=== PATIENT | male | born 1955 | race Caucasian/White ===

== ENCOUNTER 2020-01-02 13:48 | Emergency (ER) | payer MEDICARE ==
[2020-01-02 13:56] VITALS: RESP 18
--- NOTE | 2020-01-02 14:52 | XR ---
EXAMINATION TYPE: XR chest 2V DATE OF EXAM: 01/02/2020 COMPARISON: NONE HISTORY: Shortness of breath TECHNIQUE: Frontal and lateral views of the chest are obtained. FINDINGS: There is no focal air space opacity, pleural effusion, or pneumothorax seen. The cardiac silhouette size is within normal limits. The osseous structures are intact. Postop changes are note d to the left shoulder. Patient is rotated. Thoracic spondylosis is present. IMPRESSION: No acute cardiopulmonary process.
[2020-01-02 15:18] LABS: Albumin 3.8 g/dL (3.5-5.0); Calcium 8.9 mg/dL (8.4-10.2); INR 1.1 (<1.2); Partial Thromboplastin Time 23.7 sec (22.0-30.0); Potassium 4.3 mmol/L (3.5-5.1); Prothrombin Time 10.9 sec (9.0-12.0); Total Bilirubin 1.1 mg/dL (0.2-1.3); Total Protein 6.6 g/dL (6.3-8.2)
[2020-01-02 15:23] LABS: HCT 40.6 % (39.0-53.0); HGB 13.4 gm/dL (13.0-17.5); MCH 29.4 pg (25.0-35.0); MCHC 33.1 g/dL (31.0-37.0); MCV 88.8 fL (80.0-100.0); Mean Platelet Volume 7.4; Platelet Count 176 k/uL (150-450); RBC 4.57 m/uL (4.30-5.90); RDW 13.7 % (11.5-15.5); WBC 8.4 k/uL (3.8-10.6)
[2020-01-02 15:50] LABS: Eosinophils # (M) 0.25 k/uL (0-0.7); Lymphocytes # (M) 3.11 k/uL (1.0-4.8); Monocytes # (M) 0.25 k/uL (0-1.0); Neutrophils # (M) 4.79 k/uL (1.3-7.7); Neutrophils % (M) 57 %; Nucleated Red Blood Cells 0 /100 WBC (0-0); Poikilocytosis (M) Present; Total Cells Counted 100
[2020-01-02] MEDS ORDERED: DEXAMETHASONE 4 MG TAB PO STA (17:22)
--- NOTE | 2020-01-02 17:23 | ED ---
URI HPI - General Chief Complaint: Upper Respiratory Infection Stated Complaint: Sore throat headache, SOB Time Seen by Provider: 01/02/20 14:04 Source: patient Mode of arrival: ambulatory Limitations: no limitations - History of Present Illness Initial Comments: 64-year-old male presenting for sore throat and slight headache. Patient states he has had a sore throat for the past 2-3 days as well as a slight headache denies any neck stiffness or fevers. Patient states he had very slight SOB but mentioned that he was not really worried about that. Denies leg swelling, chest pain, hemoptysis, hx DVT/PE or cancer. Denies pain with deep inspiration. Wally hanson denies drooling trismus difficulty swallowing. Patient states she still been eating. Patient denies any abdominal pain nausea vomiting jaw pain or arm pain. Patient has no additional complaints denies any current headache. Upon arrival patient appears well no signs acute distress. Patient did mention that he noted that his throat was red. - Related Data Allergies Allergy/AdvReac Type Severity Reaction Status Date / Time No Known Allergies Allergy Verified 01/02/20 13:56 Review of Systems ROS Statement: Those systems with pertinent positive or pertinent negative responses have been documented in the HPI. ROS Other: All systems not noted in ROS Statement are negative. Past Medical History Past Medical History: Hyperlipidemia, Hypertension History of Any Multi-Drug Resistant Organisms: None Reported Additional Past Surgical History / Comment(s): hip replacements Past Psychological History: No Psychological Hx Reported Smoking Status: Never smoker Past Alcohol Use History: None Reported Past Drug Use History: None Reported General Exam - General Exam Comments Initial Comments: General: The patient is awake and alert, in no distress, and does not appear acutely ill. Eye: +3 mm pupils are equal, round and reactive to light, extra-ocular movements are intact. No nystagmus. There is normal conjunctiva bilaterally. No signs of icterus. No photophobia Ears, nose, mouth and throat: There are moist mucous membranes and no oral lesions. Oropharynx was erythematous there is no tonsillar enlargement exudates or lesions. Some palatal petechiae noted. Uvula midline. No anterior cervical lymphadenopathy. Rhinorrhea, clear and bilateral nares. No tripoding, no drooling. Neck: The neck is supple, there is no tenderness or JVD. No nuchal rigidity Cardiovascular: There is a regular rate and rhythm. No murmur, rub or gallop is appreciated. Respiratory: Lungs are clear to auscultation, respirations are non-labored, breath sounds are equal. No wheezes, stridor, rales, or rhonchi. No retractions or abdominal breathing. Gastrointestinal: Soft, non-distended, non-tender abdomen without masses or organomegaly noted. There is no rebound or guarding present. Bowel sounds are unremarkable. Musculoskeletal: Normal ROM, no tenderness. Strength 5/5. Sensation intact. Radial pulses equal bilaterally 2+. Neurological: A&O x 3. CN II-XII intact grossly, There are no obvious motor or sensory deficits. Coordination appears grossly intact. Speech appears normal, no muffling. Skin: Skin is warm and dry and no rashes or lesions are noted. No extremity edema Psychiatric: Cooperative Limitations: no limitations Course Vital Signs 01/02/20 01/02/20 13:52 17:35 Temperature 98.5 F 98.0 F Pulse Rate 64 74 Respiratory 18 18 Rate Blood Pressure 144/82 145/95 O2 Sat by Pulse 97 98 Oximetry Medical Decision Making - Medical Decision Making 64-year-old male presenting today for sore throat and slight headache and slight shortness of breath. He states he was not concerned with a headache or slight shortness of breath was more concerned for possible Coumadin. Coumadin testing negative. Patient has no trismus or difficulty swallowing tolerating oral secretions uvula midline. Patient does have signs of pharyngitis on physical examination. Patient's chest x-ray clear to sensitivity stable EKG no acute findings aside from noted bradycardia which resolved, no noted heart block-den ied symptoms with lower heart rate (no current SOB in ER). patient appears well, no distress requesting discharge. Dr Banks reviewed EKG and is agreeable to care plan and discharge. - Lab Data Result diagrams: 01/02/20 14:18 01/02/20 14:18 Lab Results 01/02/20 01/02/20 01/02/20 Range/Units 14:18 14:18 14:18 WBC 8.4 (3.8-10.6) k/uL RBC 4.57 (4.30-5.90) m/uL Hgb 13.4 (13.0-17.5) gm/dL Hct 40.6 (39.0-53.0) % MCV 88.8 (80.0-100.0) fL MCH 29.4 (25.0-35.0) pg MCHC 33.1 (31.0-37.0) g/dL RDW 13.7 (11.5-15.5) % Plt Count 176 (150-450) k/uL Neutrophils % (Manual) 57 % Lymphocytes % (Manual) 37 % Monocytes % (Manual) 3 % Eosinophils % (Manual) 3 % Neutrophils # (Manual) 4.79 (1.3-7.7) k/uL Lymphocytes # (Manual) 3.11 (1.0-4.8) k/uL Monocytes # (Manual) 0.25 (0-1.0) k/uL Eosinophils # (Manual) 0.25 (0-0.7) k/uL Nucleated RBCs 0 (0-0) /100 WBC Manual Slide Review Performed Poikilocytosis (manual Present PT 10.9 (9.0-12.0) sec INR 1.1 (<1.2) APTT 23.7 (22.0-30.0) sec Sodium 139 (137-145) mmol/L Potassium 4.3 (3.5-5.1) mmol/L Chloride 106 (98-107) mmol/L Carbon Dioxide 27 (22-30) mmol/L Anion Gap 6 mmol/L BUN 32 H (9-20) mg/dL Creatinine 1.18 (0.66-1.25) mg/dL Est GFR (CKD-EPI)AfAm 75 (>60 ml/min/1.73 sqM) Est GFR (CKD-EPI)NonAf 65 (>60 ml/min/1.73 sqM) Glucose 98 (74-99) mg/dL Plasma Lactic Acid Amish (0.7-2.0) mmol/L Calcium 8.9 (8.4-10.2) mg/dL Total Bilirubin 1.1 (0.2-1.3) mg/dL AST 112 H (17-59) U/L ALT 128 H (4-49) U/L Alkaline Phosphatase 90 (38-126) U/L Troponin I (0.000-0.034) ng/mL NT-Pro-B Natriuret Pep pg/mL Total Protein 6.6 (6.3-8.2) g/dL Albumin 3.8 (3.5-5.0) g/dL Coronavirus (PCR) (Not Detectd) Heterophile Antibody (Negative) Group A Strep Rapid (Negative) 01/02/20 01/02/20 01/02/20 Range/Units 14:18 14:18 14:18 WBC (3.8-10.6) k/uL RBC (4.30-5.90) m/uL Hgb (13.0-17.5) gm/dL Hct (39.0-53.0) % MCV (80.0-100.0) fL MCH (25.0-35.0) pg MCHC (31.0-37.0) g/dL RDW (11.5-15.5) % Plt Count (150-450) k/uL Neutrophils % (Manual) % Lymphocytes % (Manual) % Monocytes % (Manual) % Eosinophils % (Manual) % Neutrophils # (Manual) (1.3-7.7) k/uL Lymphocytes # (Manual) (1.0-4.8) k/uL Monocytes # (Manual) (0-1.0) k/uL Eosinophils # (Manual) (0-0.7) k/uL Nucleated RBCs (0-0) /100 WBC Manual Slide Review Poikilocytosis (manual PT (9.0-12.0) sec INR (<1.2) APTT (22.0-30.0) sec Sodium (137-145) mmol/L Potassium (3.5-5.1) mmol/L Chloride (98-107) mmol/L Carbon Dioxide (22-30) mmol/L Anion Gap mmol/L BUN (9-20) mg/dL Creatinine (0.66-1.25) mg/dL Est GFR (CKD-EPI)AfAm (>60 ml/min/1.73 sqM) Est GFR (CKD-EPI)NonAf (>60 ml/min/1.73 sqM) Glucose (74-99) mg/dL Plasma Lactic Acid Amish 0.9 (0.7-2.0) mmol/L Calcium (8.4-10.2) mg/dL Total Bilirubin (0.2-1.3) mg/dL AST (17-59) U/L ALT (4-49) U/L Alkaline Phosphatase (38-126) U/L Troponin I <0.012 (0.000-0.034) ng/mL NT-Pro-B Natriuret Pep 892 pg/mL Total Protein (6.3-8.2) g/dL Albumin (3.5-5.0) g/dL Coronavirus (PCR) (Not Detectd) Heterophile Antibody (Negative) Group A Strep Rapid (Negative) 01/02/20 01/02/20 01/02/20 Range/Units 15:11 15:11 15:50 WBC (3.8-10.6) k/uL RBC (4.30-5.90) m/uL Hgb (13.0-17.5) gm/dL Hct (39.0-53.0) % MCV (80.0-100.0) fL MCH (25.0-35.0) pg MCHC (31.0-37.0) g/dL RDW (11.5-15.5) % Plt Count (150-450) k/uL Neutrophils % (Manual) % Lymphocytes % (Manual) % Monocytes % (Manual) % Eosinophils % (Manual) % Neutrophils # (Manual) (1.3-7.7) k/uL Lymphocytes # (Manual) (1.0-4.8) k/uL Monocytes # (Manual) (0-1.0) k/uL Eosinophils # (Manual) (0-0.7) k/uL Nucleated RBCs (0-0) /100 WBC Manual Slide Review Poikilocytosis (manual PT (9.0-12.0) sec INR (<1.2) APTT (22.0-30.0) sec Sodium (137-145) mmol/L Potassium (3.5-5.1) mmol/L Chloride (98-107) mmol/L Carbon Dioxide (22-30) mmol/L Anion Gap mmol/L BUN (9-20) mg/dL Creatinine (0.66-1.25) mg/dL Est GFR (CKD-EPI)AfAm (>60 ml/min/1.73 sqM) Est GFR (CKD-EPI)NonAf (>60 ml/min/1.73 sqM) Glucose (74-99) mg/dL Plasma Lactic Acid Amish (0.7-2.0) mmol/L Calcium (8.4-10.2) mg/dL Total Bilirubin (0.2-1.3) mg/dL AST (17-59) U/L ALT (4-49) U/L Alkaline Phosphatase (38-126) U/L Troponin I (0.000-0.034) ng/mL NT-Pro-B Natriuret Pep pg/mL Total Protein (6.3-8.2) g/dL Albumin (3.5-5.0) g/dL Coronavirus (PCR) Not Detected (Not Detectd) Heterophile Antibody Negative (Negative) Group A Strep Rapid Negative (Negative) Disposition Clinical Impression: Pharyngitis Disposition: HOME SELF-CARE Condition: Good Instructions (If sedation given, give patient instructions): Pharyngitis (ED) Additional Instructions: Please use medication as discussed. Please follow-up with family doctor in the next 2 days, as well as ENT if symptoms are persistent but if worsening recommend immediate ER return. Please return to emergency room if the symptoms increase or worsen or for any other concerns. Is patient prescribed a controlled substance at d/c from ED?: No Referrals: Domingo Garcia DO [Primary Care Provider] - 1-2 days Easton Espinosa MD [STAFF PHYSICIAN] - 1-2 days Time of Disposition: 17:22
[2020-01-02 17:35] VITALS: BP 145/95; PULSE 74; TEMP 98
== END 2020-01-02 17:35 | disposition home or self-care (01) ==
LOC: EC 13:48
DX: J02.9 Acute pharyngitis, unspecified (principal); Z20.828 Contact with and (suspected) exposure to other viral communicable diseases; I10 Essential (primary) hypertension
CPT/HCPCS: 36415; 93005; 83880; 80053; 83605; 84484; 85025; 85610; 85730; 86308; 87081; 87430; 87635; 71046; 99285; J8540

== ENCOUNTER 2020-06-25 10:45 | Emergency (ER) | payer MEDICARE ==
[2020-06-25 10:53] VITALS: RESP 18; TEMP 97.6
[2020-06-25] MEDS ORDERED: DIPH,PERTUS(ACELL)TETVAC-LF 0.5 ML VIAL IM ONE (11:07)
--- NOTE | 2020-06-25 11:09 | ED ---
General Adult HPI - General Chief complaint: Extremity Injury, Upper Stated complaint: hand injury Time Seen by Provider: 06/25/20 11:03 Source: patient, RN notes reviewed Mode of arrival: ambulatory Limitations: no limitations - History of Present Illness Initial comments: Patient is a pleasant 65-year-old male presenting to the emergency Department wi th complaints of left index finger injury. Incident occurred prior to arrival. Patient was cutting a deer out of a tree when the rope wrapped around his left hand, most pressure in his left index finger. Patient did have some bleeding. Patient does have discomfort of the finger that does increase with movement. Patient feels his strength is good. No history of similar incident previously. Unclear last tetanus immunization. No other area of injury. No head injury or loss of consciousness. Patient did not fall off his ladder. - Related Data Previous Rx's Medication Instructions Recorded Cephalexin [Keflex] 500 mg PO TID #15 cap 06/25/20 Allergies Allergy/AdvReac Type Severity Reaction Status Date / Time No Known Allergies Allergy Verified 06/25/20 10:53 Review of Systems ROS Statement: Those systems with pertinent positive or pertinent negative responses have been documented in the HPI. ROS Other: All systems not noted in ROS Statement are negative. Constitutional: Denies: fever Eyes: Denies: eye pain ENT: Denies: ear pain Respiratory: Denies: cough Cardiovascular: Denies: chest pain Endocrine: Denies: fatigue Gastrointestinal: Denies: abdominal pain Genitourinary: Denies: dysuria Musculoskeletal: Reports: as per HPI. Denies: back pain Skin: Reports: as per HPI Past Medical History Past Medical History: Hyperlipidemia, Hypertension History of Any Multi-Drug Resistant Organisms: None Reported Additional Past Surgical History / Comment(s): hip replacements Past Psychological History: No Psychological Hx Reported Smoking Status: Never smoker Past Alcohol Use History: None Reported Past Drug Use History: None Reported General Exam Limitations: no limitations General appearance: alert, in no apparent distress Head exam: Present: normocephalic Eye exam: Present: normal appearance Neck exam: Present: normal inspection. Absent: tenderness Respiratory exam: Present: normal lung sounds bilaterally Cardiovascular Exam: Present: regular rate, normal rhythm GI/Abdominal exam: Present: soft. Absent: tenderness Extremities exam: Present: tenderness (Tenderness left index finger, mostly at the PIP), other (Good strength against resistance flexion and extension of left index finger. Cap refill less than 2 seconds. Sensation intact.) Neurological exam: Present: alert Psychiatric exam: Present: normal affect, normal mood Skin exam: Present: other (Flap laceration palmar side of the left index finger PIP) Course Vital Signs 06/25/20 10:51 Temperature 97.6 F Pulse Rate 55 L Respiratory 18 Rate Blood Pressure 129/81 O2 Sat by Pulse 98 Oximetry Procedures - Procedures Initial comment: Fingerstick placed left index finger following procedure - Laceration Laceration #1 Consent Obtained: verbal consent Indication: laceration Site: hand (Left index finger) Size (cm): 2 Description: flap Depth: simple, single layer Anesthesia Technique: nerve block Pre-repair: wound explored, irrigated extensively (With saline and Betadine) Type of Sutures: nylon Size of Sutures: 5-0 Number of Sutures: 3 Technique: simple, interrupted Patient Tolerated Procedure: well, no complications - Nerve Block Consent Obtained: verbal consent Local Anesthetic Used: Lidocaine 1% Side: left Nerve Blocks: digital (Index) Procedure Successful: Yes Complications: none Disposition Clinical Impression: Laceration of left index finger Disposition: HOME SELF-CARE Condition: Stable Instructions (If sedation given, give patient instructions): Laceration (ED) Additional Instructions: Please follow-up with primary care physician in the next couple days for recheck. Suture removal in 7-8 days. Twice daily wash area with soap and water, apply antibiotic ointment, and keep bandaged. Use finger splint. Return for increased pain, redness or swelling, drainage, fevers, worsening symptoms or other concerns. Prescription has been sent to your [facility] [place] Prescriptions: Cephalexin [Keflex] 500 mg PO TID #15 cap Is patient prescribed a controlled substance at d/c from ED?: No Referrals: Domingo Garcia DO [Primary Care Provider] - 1-2 days Time of Disposition: 12:07
--- NOTE | 2020-06-25 11:30 | XR ---
EXAMINATION TYPE: XR hand complete LT DATE OF EXAM: 06/25/2020 CLINICAL HISTORY: Cutting injury with pain worse over second finger. TECHNIQUE: Frontal, lateral and oblique images of the left hand are obtained. COMPARISON: None. FINDINGS: There is no acute fracture/dislocation evident in the left hand. Severe narrowing with charly nt space sclerosis first metacarpophalangeal joint. Mild to moderate narrowing with mild spurring thr oughout the PIP and DIP joints of the phalanges greatest involving the third DIP joint. Mild to moder ate diffuse soft tissue swelling second proximal phalanx level without suspicious radiodense foreign body. IMPRESSION: As above.
[2020-06-25] MEDS ORDERED: LIDOCAINE 1% INJ 10MG/ML (20 ML MDV) SQ ONE (11:36)
[2020-06-25] MEDS ORDERED: ACET/COD 300 MG/30 MG STARTER PACK 6 TAB BTL PO STA (12:10)
[2020-06-25 12:18] VITALS: BP 124/73; PULSE 52
== END 2020-06-25 12:19 | disposition home or self-care (01) ==
LOC: EC 10:45
DX: S61.211A Laceration without foreign body of left index finger without damage to nail, initial encounter (principal); Z23 Encounter for immunization; W23.1XXA Caught, crushed, jammed, or pinched between stationary objects, initial encounter; Y92.009 Unspecified place in unspecified non-institutional (private) residence as the place of occurrence of the external cause
CPT/HCPCS: 73130; 90715; 99283; 90471; 12001; J2001

== ENCOUNTER 2023-04-10 15:41 | Emergency (ER) | payer MEDICARE ==
--- NOTE | 2023-04-10 16:08 | ED ---
General Adult HPI - General Chief complaint: Back Pain/Injury Stated complaint: Back and Abd Pain Time Seen by Provider: 04/10/23 16:07 Source: patient, RN notes reviewed Mode of arrival: ambulatory Limitations: no limitations - History of Present Illness Initial comments: 68-year-old male with a past medical history significant For kidney stones presents to the emergency department with a chief complaint of left flank pain sudden onset this afternoon. Patient reports left flank pain that radiates in the left groin. He rates the pain and 10/10. Denies nausea and vomiting. Denies fever, chills, chest pain, shortness of breath. He has not taken anything for his symptoms. He reports a history of his symptoms and this feels the same. His urology appointment is in April. - Related Data Previous Rx's Medication Instructions Recorded Cephalexin [Keflex] 500 mg PO TID #15 cap 06/25/20 HYDROcodone/APAP 5-325MG [[place] 5] 1 each PO Q6HR PRN #12 tab 04/10/23 Ketorolac [Toradol] 10 mg PO Q8HR #15 tab 04/10/23 Tamsulosin [Flomax] 0.4 mg PO DAILY #14 cap 04/10/23 Allergies Allergy/AdvReac Type Severity Reaction Status Date / Time No Known Allergies Allergy Verified 06/25/20 10:53 Review of Systems ROS Statement: Those systems with pertinent positive or pertinent negative responses have been documented in the HPI. ROS Other: All systems not noted in ROS Statement are negative. Past Medical History Past Medical History: Hyperlipidemia, Hypertension Additional Past Medical History / Comment(s): kidney stones History of Any Multi-Drug Resistant Organisms: None Reported Additional Past Surgical History / Comment(s): hip replacements Past Psychological History: No Psychological Hx Reported Smoking Status: Never smoker Past Alcohol Use History: None Reported Past Drug Use History: None Reported General Exam - General Exam Comments Initial Comments: Visual Physical Exam Vital signs reviewed General: Well-appearing, nontoxic, no acute distress. Head: Normocephalic, atraumatic Eyes: PERRLA, EOMI ENT: Airway patent Chest: Nonlabored breathing Skin: No visual rash, normal skin tone Neuro: Alert and oriented 3 Musculoskeletal: No gross abnormalities General: Alert, in no acute distress Head: atraumatic normocephalic. Eyes PERRL, EOMI intact, mucous membranes moist Respiratory: Lungs clear to auscultation bilaterally Cardiovascular: Heart rate regular rate and rhythm Abdominal: Soft without guarding or rebound Extremities: Normal inspection with full range of motion and normal capillary refill Neuroogic: alert and oriented 3, CN II-XII intact, able to ambulate with steady gait Skin: warm dry and intact with normal color Limitations: no limitations Course Vital Signs 04/10/23 04/10/23 04/10/23 16:02 18:58 20:36 Temperature 98 F Pulse Rate 45 L 51 L 50 L Respiratory 20 16 16 Rate Blood Pressure 172/102 156/92 148/74 O2 Sat by Pulse 98 97 95 Oximetry 04/10/23 21:10 Temperature 97.9 F Pulse Rate 50 L Respiratory 16 Rate Blood Pressure 148/72 O2 Sat by Pulse 96 Oximetry Medical Decision Making - Medical Decision Making Was pt. sent in by a medical professional or institution (, PA, [employer], urgent care, hospital, or half-way...) When possible be specific @ -[No] Did you speak to anyone other than the patient for history (EMS, parent, family, police, friend...)? What history was obtained from this source @ -Patients Did you review nursing and triage notes (agree or disagree)? Why? @ -[I reviewed and agree with nursing and triage notes] Were old charts reviewed (outside hosp., previous admission, EMS record, old EKG, old radiological studies, urgent care reports/EKG's, half-way records)? Report findings @ -[No old charts were reviewed] Differential Diagnosis (chest pain, altered mental status, abdominal pain women, abdominal pain men, vaginal bleeding, weakness, fever, dyspnea, syncope, headache, dizziness, GI bleed, back pain, seizure, CVA, palpatations, mental health, musculoskeletal)? @ -[not applicable] EKG interpreted by me (3pts min.). @ -[As above] X-rays interpreted by me (1pt min.). @ -[None done] CT interpreted by me (1pt min.). @ -[None done] U/S interpreted by me (1pt. min.). @ -[None done] What testing was considered but not performed or refused? (CT, X-rays, U/S, labs)? Why? @ -[None] What meds were considered but not given or refused? Why? @ -[None] Did you discuss the management of the patient with other professionals (professionals i.e. , PA, [employer]ER, lab, RT, psych nurse, social service worker, salon customer experience specialist, teacher, command and control officer, gearcase assembler)? Give summary @ -[No] Was smoking cessation discussed for >3mins.? @ -[No] Was critical care preformed (if so, how long)? @ -[No] Were there social determinants of health that impacted care today? How? (Homelessness, low income, unemployed, alcoholism, drug addiction, transportation, low edu. Level, literacy, decrease access to med. care, usp, rehab)? @ -[No] Was there de-escalation of care discussed even if they declined (Discuss DNR or withdrawal of care, Hospice)? DNR status @ -[No] What co-morbidities impacted this encounter? (DM, HTN, Smoking, COPD, CAD, Cancer, CVA, ARF, Chemo, Hep., AIDS, mental health diagnosis, sleep apnea, morbid obesity)? @ -[None] Was patient admitted / discharged? Hospital course, mention meds given and route, prescriptions, significant lab abnormalities, going to OR and other pertinent info. @ -Discharged. This is a 68-year-old male with past medical history significant for nephrolithiasis who presents the emergency department with left flank pain. Patient had a thorough history and physical exam performed. Patient appears visibly uncomfortable. Heart rate regular rate and rhythm, lungs clear to auscultation, abdomen soft, nontender. Patient had lab work and imaging performed which revealed: I interpreted the following: CT abdomen and pelvis without contrast reveals left hydroureteronephrosis with an obstructive four millimeter calculus at the UVJ. There is nonobstructive left renal calculi. There is chronic diverticulosis without acute diverticulitis. There is hepatic steatosis and cardiomegaly. Patient had labs performed which were unremarkable. I discussed results in detail with the patient verbalized understanding and all questions were addressed. He was given Toradol, morphine, 1 L of IV fluids with symptomatic relief in the emergency department. He'll be given prescription for Toradol, Flomax, [place] recommend close follow-up with urology in 1-2 days. Discharged in stable condition. Case discussed with JEANA KellyP who agrees with plan of care Undiagnosed new problem with uncertain prognosis? @ -[No] Drug Therapy requiring intensive monitoring for toxicity (Heparin, Nitro, Insulin, Cardizem)? @ -[No] Were any procedures done? @ -[No] Diagnosis/symptom? @ -Flank Pain - Right Nephrolithiasis Acute, or Chronic, or Acute on Chronic? @ -Acute Uncomplicated (without systemic symptoms) or Complicated (systemic symptoms)? @ -Uncomplicated Side effects of treatment? @ -[No] Exacerbation, Progression, or Severe Exacerbation? @ -[No] Poses a threat to life or bodily function? How? (Chest pain, USA, NE, pneumonia, PE, COPD, DKA, ARF, appy, cholecystitis, CVA, Diverticulitis, Homicidal, Suicidal, threat to staff... and all critical care pts) @ -Low likelihood - Lab Data Result diagrams: 04/10/23 16:52 04/10/23 16:51 Lab Results 04/10/23 04/10/23 04/10/23 Range/Units 16:51 16:52 18:39 WBC 12.3 H (3.8-10.6) k/uL RBC 4.85 (4.30-5.90) m/uL Hgb 15.3 (13.0-17.5) gm/dL Hct 43.2 (39.0-53.0) % MCV 89.1 (80.0-100.0) fL MCH 31.6 (25.0-35.0) pg MCHC 35.5 (31.0-37.0) g/dL RDW 13.8 (11.5-15.5) % Plt Count 191 (150-450) k/uL MPV 7.6 Neutrophils % 69 % Lymphocytes % 20 % Monocytes % 6 % Eosinophils % 1 % Basophils % 0 % Neutrophils # 8.5 H (1.3-7.7) k/uL Lymphocytes # 2.5 (1.0-4.8) k/uL Monocytes # 0.7 (0-1.0) k/uL Eosinophils # 0.2 (0-0.7) k/uL Basophils # 0.0 (0-0.2) k/uL Sodium 140 (137-145) mmol/L Potassium 4.2 (3.5-5.1) mmol/L Chloride 109 H (98-107) mmol/L Carbon Dioxide 22 (22-30) mmol/L Anion Gap 9 mmol/L BUN 25 H (9-20) mg/dL Creatinine 1.18 (0.66-1.25) mg/dL Est GFR (CKD-EPI)AfAm 73 (>60 ml/min/1.73 sqM) Est GFR (CKD-EPI)NonAf 63 (>60 ml/min/1.73 sqM) Glucose 114 H (74-99) mg/dL Calcium 9.0 (8.4-10.2) mg/dL Total Bilirubin 1.2 (0.2-1.3) mg/dL AST 44 (17-59) U/L ALT 59 H (4-49) U/L Alkaline Phosphatase 74 (38-126) U/L Total Protein 7.3 (6.3-8.2) g/dL Albumin 4.4 (3.5-5.0) g/dL Urine Color Yellow Urine Appearance Clear (Clear) Urine pH 6.0 (5.0-8.0) Ur Specific [place] 1.016 (1.001-1.035) Urine Protein Trace H (Negative) Urine Glucose (UA) Negative (Negative) Urine Ketones 1+ H (Negative) Urine Blood Negative (Negative) Urine Nitrite Negative (Negative) Urine Bilirubin Negative (Negative) Urine Urobilinogen <2.0 (<2.0) mg/dL Ur Leukocyte Esterase Negative (Negative) Disposition Clinical Impression: Nephrolithiasis Disposition: HOME SELF-CARE Condition: Stable Instructions (If sedation given, give patient instructions): Kidney Stones (ED), Flank Pain (ED) Additional Instructions: Please take Toradol and [place] for pain as needed Please increase fluids for the next few days Please return to the nearest emergency department if fever or worsening pain develops Prescriptions: Tamsulosin [Flomax] 0.4 mg PO DAILY #14 cap HYDROcodone/APAP 5-325MG [[place] 5] 1 each PO Q6HR PRN #12 tab PRN Reason: Pain Ketorolac [Toradol] 10 mg PO Q8HR #15 tab Is patient prescribed a controlled substance at d/c from ED?: No Referrals: None,Stated [REFERRING] - 1-2 days Florentino Gutierrez MD [STAFF PHYSICIAN] - 1-2 days Time of Disposition: 20:46
[2023-04-10 17:00] LABS: Basophils % (A) 0 %; Eosinophils # (A) 0.2 k/uL (0-0.7); Eosinophils % (A) 1 %; HCT 43.2 % (39.0-53.0); HGB 15.3 gm/dL (13.0-17.5); Lymphocytes # (A) 2.5 k/uL (1.0-4.8); Lymphocytes % (A) 20 %; MCH 31.6 pg (25.0-35.0); MCHC 35.5 g/dL (31.0-37.0); MCV 89.1 fL (80.0-100.0); Mean Platelet Volume 7.6; Monocytes # (A) 0.7 k/uL (0-1.0); Monocytes % (A) 6 %; Neutrophils # (A) 8.5 k/uL (1.3-7.7); Neutrophils % (A) 69 %; Platelet Count 191 k/uL (150-450); RBC 4.85 m/uL (4.30-5.90); RDW 13.8 % (11.5-15.5); WBC 12.3 k/uL (3.8-10.6)
[2023-04-10 17:11] LABS: ALT 59 U/L (4-49); AST 44 U/L (17-59); African American GFR (CKD) 73 (>60 ml/min/1.73 sqM); Albumin 4.4 g/dL (3.5-5.0); Alkaline Phosphatase 74 U/L (38-126); Anion Gap 9 mmol/L; Blood Urea Nitrogen 25 mg/dL (9-20); Carbon Dioxide 22 mmol/L (22-30); Chloride 109 mmol/L (98-107); Glucose 114 mg/dL (74-99); Non-African American GFR(CKD) 63 (>60 ml/min/1.73 sqM); Potassium 4.2 mmol/L (3.5-5.1); Sodium 140 mmol/L (137-145); Total Bilirubin 1.2 mg/dL (0.2-1.3); Total Protein 7.3 g/dL (6.3-8.2)
--- NOTE | 2023-04-10 17:28 | CT ---
EXAMINATION TYPE: CT abdomen pelvis wo con CT DLP: 1267.1 mGycm, Automated exposure control for dose reduction was used. DATE OF EXAM: 04/10/2023 5:20 PM COMPARISON: None CLINICAL INDICATION:Male, 68 years old with history of r/out nephrolithiasis; left flank pain TECHNIQUE: Standard CT of the abdomen and pelvis without IV or oral contrast. Lack of IV or oral co ntrast limits evaluation of solid and hollow organ viscera. Coronal and sagittal reformats were perfo rmed. FINDINGS: Motion degraded examination. LOWER CHEST: Posterior dependent subsegmental atelectasis is noted. Cardiomegaly. ABDOMEN LIVER: Diffusely hypoattenuating parenchyma. GALLBLADDER AND BILE DUCTS: Unremarkable noncontrast appearance PANCREAS: Unremarkable noncontrast appearance SPLEEN: Unremarkable noncontrast appearance ADRENAL GLANDS: Unremarkable noncontrast appearance. KIDNEYS AND URETERS: Mild left hydronephrosis with an obstructing 4 mL calculus at the ureterovesical junction. No hydronephrosis involving the right kidney. Couple of additional punctate 2 mm nonobstru ctive left renal calculi. Nonspecific bilateral perinephric fat stranding. PELVIS BLADDER/REPRODUCTIVE: Poorly evaluated due to streak artifact from hip prosthesis. ABDOMEN & PELVIS STOMACH AND BOWEL: Small hiatal hernia, duodenum is unremarkable. Distal colonic diverticulosis witho ut evidence for acute diverticulitis. The appendix is within normal limits. No evidence of bowel obst ruction. PERITONEUM: No evidence of pneumoperitoneum or free fluid. VASCULATURE: No evidence of aortic aneurysm. MUSCULOSKELETAL: No acute osseous abnormalities. Postsurgical changes from bilateral total hip arthro plasty. LYMPH NODES: No gross evidence for lymphadenopathy. SOFT TISSUE/ABDOMINAL WALL: Small fat filled umbilical hernia. IMPRESSION: 1. Mild left hydroureteronephrosis with an obstructive 4 mm calculus at the ureterovesical junction. 2. Nonobstructive left renal calculi. 3. Colonic diverticulosis without evidence for acute diverticulitis. 4. Hepatic steatosis. 5. Cardiomegaly.
[2023-04-10] MEDS ORDERED: KETOROLAC 15 MG/ML 1 ML VIAL IVP STA (18:24)
[2023-04-10] MEDS ORDERED: TAMSULOSIN 0.4 MG CAP.ER.24H PO STA (18:24)
[2023-04-10] MEDS ORDERED: SODIUM CHLORIDE 0.9% 1,000 ML IV STA (18:24)
[2023-04-10 18:59] VITALS: RESP 16
[2023-04-10] MEDS ORDERED: MORPHINE SULFATE 4 MG/ML SYRINGE IVP STA (19:17)
[2023-04-10 20:36] LABS: Appearance,Urine Clear (Clear); Bilirubin,Urine Negative (Negative); Blood,Urine Negative (Negative); Color,Urine Yellow; Glucose,Urine (UA) Negative (Negative); Ketones,Urine 1+ (Negative); Leukocyte Esterase,Urine Negative (Negative); Nitrite,Urine Negative (Negative); Protein,Urine Trace (Negative); Specific Gravity,Urine 1.016 (1.001-1.035); Urobilinogen,Urine <2.0 mg/dL (<2.0)
[2023-04-10 20:38] VITALS: PULSE 50
[2023-04-10] MEDS ORDERED: ONDANSETRON 4 MG ODT STARTER PACK 2 TAB BTL PO STA (20:45)
[2023-04-10 21:12] VITALS: BP 148/72; TEMP 97.9
== END 2023-04-10 21:12 | disposition home or self-care (01) ==
LOC: EC 15:41
DX: N13.2 Hydronephrosis with renal and ureteral calculous obstruction (principal); I10 Essential (primary) hypertension
CPT/HCPCS: 36415; 80053; 85025; 81003; 74176; 99284; 96374; 96375; 96361; J2270; J1885; S0119

== ENCOUNTER 2024-06-20 22:39 | Inpatient (IN) | payer MEDICARE ==
[2024-06-20] MEDS ORDERED: VANCOMYCIN IV PER PHARMACY 1 EACH MISC MISCELLANE PRN (23:18)
--- NOTE | 2024-06-20 23:19 | ED ---
General Adult HPI - General Chief complaint: Extremity Injury, Upper Stated complaint: R Hand Edema Time Seen by Provider: 06/20/24 23:00 Source: patient Mode of arrival: ambulatory Limitations: no limitations - History of Present Illness Initial comments: Patient is a 69-year-old gentleman with a past medical history of hypertension presenting today for right hand pain. Patient states that yesterday he noticed pain at the proximal aspect of his right hand where it meets at the wrist and went to bed. This morning he woke up with the hand swollen with swelling extending up his arm. He endorses pain that radiates to his elbow and shoulder from the right hand. He and his did recently drive from [place]. He denies any injury to the hand. Denies fevers, chills, chest pain, shortness of breath, nausea vomiting or diarrhea. He is not immunocompromise. Denies history of IV drug abuse. Denies prior surgeries on this hand. He is unable to fully flex and extend at the right wrist or flex his right thumb due to pain. Denies allergies. Denies being exposed to any type of insect that may have bitten him. Denies history of prior blood clots. Is a non-smoker. No history of cancer estrogen replacement therapy. No shortness of breath. Patient did take 800 mg of ibuprofen prior to arrival without relief of pain. Patient states he does have a history of gout but states he has never had a flare in his wrist before and states this does not feel it prior gout flares. - Related Data Previous Rx's Medication Instructions Recorded Cephalexin [Keflex] 500 mg PO TID #15 cap 06/25/20 Ketorolac [Toradol] 10 mg PO Q8HR #15 tab 04/10/23 Tamsulosin [Flomax] 0.4 mg PO DAILY #14 cap 04/10/23 HYDROcodone/APAP 5-325MG [[place] 1 tab PO Q6HR PRN 3 Days #12 tab 04/11/23 5-325] Allergies Allergy/AdvReac Type Severity Reaction Status Date / Time No Known Allergies Allergy Verified 06/20/24 22:57 Review of Systems ROS Statement: Those systems with pertinent positive or pertinent negative responses have been documented in the HPI. ROS Other: All systems not noted in ROS Statement are negative. Past Medical History Past Medical History: Hyperlipidemia, Hypertension Additional Past Medical History / Comment(s): kidney stones History of Any Multi-Drug Resistant Organisms: None Reported Additional Past Surgical History / Comment(s): hip replacements Past Psychological History: No Psychological Hx Reported Smoking Status: Never smoker Past Alcohol Use History: None Reported Past Drug Use History: None Reported - Past Family History Father Family Medical History: Hypertension General Exam - General Exam Comments Initial Comments: PE: CONSTITUTIONAL: [no apparent distress, well appearing] SKIN: Warm, dry, no jaundice, hives or petechiae. Right hand is erythematous is predominantly at the palmar aspect of the right hand predominately femur eminence however redness does extend around right wrist, no well-defined border, tenderness palpation of the palmar aspect of the right thumb, right anatomic snuffbox and distal radius EYES: Pupils are equally round, extraocular movements intact without nystagmus, clear conjunctiva, non-icteric sclera HENT: Normocephalic, atraumatic, moist mucus membranes, oropharynx clear without exudates NECK: , Full range of motion, normal appearance PULMONARY: Clear to auscultation without wheezes, rhonchi, or rales, normal excursion, no accessory muscle use and no stridor CARDIOVASCULAR: Regular rate, rhythm, normal S1 and S2. No appreciated murmurs, rubs or gallops. Strong radial pulses with intact distal perfusion. No lower extremity edema GASTROINTESTINAL: Soft, active bowel sounds throughout, non-tender, non- distended, no palpable masses, no rebound or guarding. No hepatosplenomegaly GENITOURINARY: MUSCULOSKELETAL: Swelling and edema to the entire right hand extending up towards right shoulder, swelling does improve as it goes up the arm, palpation of the thenar eminence and distal radius as well as the palmar aspect of the right thumb, patient is unable to flex his right thumb or fully flex his right wrist due to pain is able to extend the right wrist move his fingers, sensation intact, less than 2-second capillary refill, 2+ radial pulse palpated, no gross deformity, no pallor, TTP distal radius otherwise, no tenderness to palpation of the proximal right wrist, right forearm, right elbow right bicep right shoulder. Otherwise extremities have no gross deformity, no edema, redness, or swelling. No calf swelling NEUROLOGIC:_a/o x 3, GCS 15, normal mentation and speech. Moves all extremities x 4 without motor or sensory deficit PSYCHIATRIC:_normal mood and affect, thought process is clear and linear Limitations: no limitations Course Vital Signs 06/20/24 06/21/24 06/21/24 22:55 04:00 06:52 Temperature 98.8 F 97.8 F Pulse Rate 52 L 52 L 51 L Respiratory 18 16 16 Rate Blood Pressure 194/87 132/83 132/79 O2 Sat by Pulse 97 97 97 Oximetry Medical Decision Making - Medical Decision Making Was pt. sent in by a medical professional or institution (JUAN C Espinosa, FINANCIAL FOUNDATIONS REPRESENTATIVE, urgent care, hospital, or jail...) When possible be specific @ -[No] Did you speak to anyone other than the patient for history (EMS, parent, family, police, friend...)? What history was obtained from this source @ -[No] Did you review nursing and triage notes (agree or disagree)? Why? @ -[I reviewed and agree with nursing and triage notes] Were old charts reviewed (outside hosp., previous admission, EMS record, old EKG, old radiological studies, urgent care reports/EKG's, jail records)? Report findings @ -Medical records reviewed Differential Diagnosis (chest pain, altered mental status, abdominal pain women, abdominal pain men, vaginal bleeding, weakness, fever, dyspnea, syncope, headache, dizziness, GI bleed, back pain, seizure, CVA, palpatations, mental health, musculoskeletal)? @Diagnosed transport over top considerations include cellulitis, abscess, gout, DVT, arthritis, flexor tenosynovitis, fracture, contusion. This is not all inclusive list EKG interpreted by me (3pts min.). @ -As above X-rays interpreted by me (1pt min.). @ -I see no evidence of fracture or dislocation CT interpreted by me (1pt min.). @ -None done What testing was considered but not performed or refused? (CT, X-rays, U/S, labs)? Why? @ -None What meds were considered but not given or refused? Why? @ -None Did you discuss the management of the patient with other professionals (professionals i.e. JUAN C Espinosa, FINANCIAL FOUNDATIONS REPRESENTATIVE, lab, RT, psych nurse, social media director, prospecting observer, teacher, dog license officer supervisor, nurse outreach case manager)? Give summary @ -No Was smoking cessation discussed for >3mins.? @ -No Was critical care preformed (if so, how long)? @ -No Were there social determinants of health that impacted care today? How? (Homelessness, low income, unemployed, alcoholism, drug addiction, transportation, low edu. Level, literacy, decrease access to med. care, detention, rehab)? @ -No Was there de-escalation of care discussed even if they declined (Discuss DNR or withdrawal of care, Hospice)? @ -No What co-morbidities impacted this encounter? (DM, HTN, Smoking, COPD, CAD, Cancer, CVA, ARF, Chemo, Hep., AIDS, mental health diagnosis, sleep apnea, morbid obesity)? @ -None HTN, Gout Was patient admitted / discharged? Hospital course, mention meds given and route, prescriptions, significant lab abnormalities, going to OR and other pertinent info. @ -Hospital course admission- Patient is a pleasant 69-year-old gentleman presenting today for 1 day of atraumatic right hand swelling and erythema. No history of immunocompromise. Afebrile. Exam significant for diffuse edema of the right hand with mild swelling extending up the forearm, tenderness to palpation of the thenar eminence of the right palm, erythema around right hand, no well-demarcated border, 2+ radial pulse present, able to flex and extend fingers with exception of right thumb, right thumb is held in passive extension, pain with flexion of the right thumb, pain with palpation of the radial head, thenar eminence, mild pain with palpation of the flexor sheath however pain appears to be focused over thenar eminence, no fluctuance. No joint swelling or deformity. Neurovascularly intact. There is not fusiform swelling of the entire thumb, but moreso generalized swelling edema of the right hand. Differential diagnosis is broad, high's concern for cellulitis. Did consider flexor tenosynovitis, however, as described above, pain is more focused to the thenar eminence as opposed to the flexor sheath of the right thumb, pain with flexion, as opposed to passive extension. Plan for ultrasound and x-ray of the affected extremity, labs and IV antibiotics as well as pain control. Patient agreeable with plan. Of note patient states he has a history of frequent infections though has never been told he has MRSA. For this reason will give rocephin and vancomycin. X-ray no fracture dislocation but did show soft tissue swelling. Ultrasound negative for DVT. Reviewed patient's labs, no leukocytosis though CRP minimally elevated at 3.2. On reassessment patient remains painful. Additional pain medications ordered. Due to location of suspected infection and concern that could progress to flexor tenosynovitis if allowed to continue plan for admission for observation and IV antibiotics. Patient is agreeable plan of care. Case was discussed with Dr. Cole, who kindly accepts patient for admission. Admission orders placed Undiagnosed new problem with uncertain prognosis? @ -No Drug Therapy requiring intensive monitoring for toxicity (Heparin, Nitro, Insulin, Cardizem)? @ -No Were any procedures done? @ -No Diagnosis/symptom? @ -Cellulitis Acute, or Chronic, or Acute on Chronic? @ -Acute Uncomplicated (without systemic symptoms) or Complicated (systemic symptoms)? @ -Complicated Side effects of treatment? @ -No Exacerbation, Progression, or Severe Exacerbation? @ -No Poses a threat to life or bodily function? How? (Chest pain, [place], [place], pneumonia, PE, COPD, DKA, ARF, appy, cholecystitis, CVA, Diverticulitis, Homicidal, Suicidal, threat to staff... and all critical care pts) @Yes - Lab Data Result diagrams: 06/21/24 00:04 06/21/24 00:45 Lab Results 06/21/24 06/21/24 Range/Units 00:04 00:45 WBC 9.9 (3.8-10.6) k/uL RBC 4.78 (4.30-5.90) m/uL Hgb 15.0 (13.0-17.5) gm/dL Hct 42.2 (39.0-53.0) % MCV 88.2 (80.0-100.0) fL MCH 31.4 (25.0-35.0) pg MCHC 35.6 (31.0-37.0) g/dL RDW 14.0 (11.5-15.5) % Plt Count 182 (150-450) k/uL MPV 9.7 Neutrophils % 60 % Lymphocytes % 22 % Monocytes % 11 % Eosinophils % 3 % Basophils % 0 % Neutrophils # 5.9 (1.3-7.7) k/uL Lymphocytes # 2.2 (1.0-4.8) k/uL Monocytes # 1.1 H (0-1.0) k/uL Eosinophils # 0.3 (0-0.7) k/uL Basophils # 0.0 (0-0.2) k/uL Sodium 140 (137-145) mmol/L Potassium 3.8 (3.5-5.1) mmol/L Chloride 111 H (98-107) mmol/L Carbon Dioxide 24 (22-30) mmol/L Anion Gap 5 mmol/L BUN 21 H (9-20) mg/dL Creatinine 0.99 (0.66-1.25) mg/dL Est GFR (CKD-EPI)AfAm 89 (>60 ml/min/1.73 sqM) Est GFR (CKD-EPI)NonAf 77 (>60 ml/min/1.73 sqM) Glucose 108 H (74-99) mg/dL Calcium 8.6 (8.4-10.2) mg/dL Total Bilirubin 0.9 (0.2-1.3) mg/dL AST 30 (17-59) U/L ALT 30 (4-49) U/L Alkaline Phosphatase 70 (38-126) U/L C-Reactive Protein 3.2 H (<1.0) mg/dL Total Protein 6.6 (6.3-8.2) g/dL Albumin 3.9 (3.5-5.0) g/dL Disposition Clinical Impression: Cellulitis Disposition: ADMITTED IP TO THIS [facility] Condition: Good
[2024-06-21] MEDS: KETOROLAC 15 MG/ML 1 ML VIAL IVP STA (00:06)
[2024-06-21] MEDS: MORPHINE SULFATE 4 MG/ML SYRINGE IVP STA ×2 (00:12→02:53)
[2024-06-21] MEDS: ONDANSETRON 4 MG/2 ML VIAL IVP STA ×2 (00:15→02:52)
[2024-06-21] MEDS: VANCOMYCIN 1,750 MG in SODIUM CHLORIDE 0.9% 500 ML 500 ML IVPB ONE (00:39)
[2024-06-21 00:41] LABS: Basophils % (A) 0 %; Eosinophils # (A) 0.3 k/uL (0-0.7); Eosinophils % (A) 3 %; HCT 42.2 % (39.0-53.0); Lymphocytes # (A) 2.2 k/uL (1.0-4.8); Lymphocytes % (A) 22 %; MCH 31.4 pg (25.0-35.0); MCHC 35.6 g/dL (31.0-37.0); MCV 88.2 fL (80.0-100.0); Mean Platelet Volume 9.7; Monocytes # (A) 1.1 k/uL (0-1.0); Monocytes % (A) 11 %; Neutrophils # (A) 5.9 k/uL (1.3-7.7); Neutrophils % (A) 60 %; Platelet Count 182 k/uL (150-450); RBC 4.78 m/uL (4.30-5.90); WBC 9.9 k/uL (3.8-10.6)
[2024-06-21 01:14] LABS: ALT 30 U/L (4-49); AST 30 U/L (17-59); African American GFR (CKD) 89 (>60 ml/min/1.73 sqM); Albumin 3.9 g/dL (3.5-5.0); Alkaline Phosphatase 70 U/L (38-126); Anion Gap 5 mmol/L; Blood Urea Nitrogen 21 mg/dL (9-20); C Reactive Protein 3.2 mg/dL (<1.0); Calcium 8.6 mg/dL (8.4-10.2); Carbon Dioxide 24 mmol/L (22-30); Chloride 111 mmol/L (98-107); Glucose 108 mg/dL (74-99); Non-African American GFR(CKD) 77 (>60 ml/min/1.73 sqM); Potassium 3.8 mmol/L (3.5-5.1); Sodium 140 mmol/L (137-145); Total Bilirubin 0.9 mg/dL (0.2-1.3); Total Protein 6.6 g/dL (6.3-8.2)
--- NOTE | 2024-06-21 02:31 | US ---
EXAM: US Duplex Right Upper Extremity Veins CLINICAL HISTORY: ITS.REASON US Reason: right arm pain, swelling, atraumatic TECHNIQUE: Real-time duplex ultrasound scan of the right upper extremity veins integrating B-mode two-dimensional vascular structure, Doppler spectral analysis, color flow Doppler imaging and compression. COMPARISON: No relevant prior studies available. FINDINGS: Deep veins: Unremarkable. No DVT in the internal jugular, subclavian, axillary, brachial, radial, or ulnar veins. The veins demonstrate normal color flow, are normally compressible, with normal phasic flow and/or augmentation response. Superficial veins: Unremarkable. No thrombus in the visualized basilic and cephalic veins. Soft tissues: No acute findings. IMPRESSION: No evidence of acute DVT.
--- NOTE | 2024-06-21 03:03 | XR ---
EXAM: XR Right Hand Complete, 3 or More Views CLINICAL HISTORY: ITS.REASON XR Reason: right snuffbox tenderness, atraumatic TECHNIQUE: Frontal, lateral and oblique views of the right hand. COMPARISON: No relevant prior studies available. 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 Additional polyarticular degenerative change including the radiocarpal joint. Osteopenia. No fracture. No dislocation. Soft tissues: Diffuse soft tissue swelling, greatest dorsally. No radiopaque foreign body. IMPRESSION: Diffuse soft tissue swelling, greatest dorsally. No acute osseous findings.
[2024-06-21] MEDS: HYDROmorphone 1 MG/ML 1 ML SYRINGE IVP STA (04:02)
--- NOTE | 2024-06-21 04:44 | P.HPIM ---
History of Present Illness H&P Date: 06/21/24 Patient is a 69-year-old male with a PMH of hypertension and hyperlipidemia who presents to the emergency room with complaints of right hand pain and swelling. Patient reports that he was in [place] for his father's when he noticed the right hand pain on evening. Patient notes he was sitting down watching television when he suddenly felt a pain of the right hand and then gradually worsened over the past 36 hours. Reports that he woke up and his hand was swollen earlier in the morning Sunday. The pain is radiating from the hand up into the elbow and shoulder. Reports that the pain at the time of interview is a 7 out of 10. Denies any trauma or insect bites to the area. Denies any prior history of such symptoms. Patient does report however that he has had multiple skin infections over the past several years, although denied a MRSA infection. Denies IV substance use. Denies experiencing fever, chills, chest pain, shortness of breath, nausea, vomiting, abdominal pain, diarrhea. Right upper extremity venous Doppler was negative with hand x-ray showing diffuse soft tissue swelling, greatest dorsally with no other abnormalities noted. Laboratory evaluation was remarkable for chloride 111, BUN 21, creatinine 0.99, glucose 108, WBC count 9.9, hemoglobin 15.0. ED documentation reviewed and case discussed with ED provider. Review of systems: Pertinent positives and negatives as discussed in HPI, a complete review of systems was performed and all other systems are negative. Physical examination: Vital signs reviewed General: non toxic, no distress, appears at stated age, obese Derm: Right hand swelling and erythema with tenderness extending to wrist warm Head: atraumatic, normocephalic, symmetric Eyes: EOMI, no lid lag, anicteric sclera, pupils equal round reactive to light ENT: Nose and ears atraumatic Neck: No cervical lymphadenopathy, trachea midline, supple Mouth: no lip lesion, mucus membranes moist Cardiovascular: S1S2 reg, no murmur, positive dorsalis pedis pulse bilateral, no edema Lungs: CTA bilateral, no rhonchi, no rales, no accessory muscle use Abdominal: soft, nontender to palpation, no guarding Ext: muscle strength 5 out of 5 in all 4 extremities grossly, no gross muscle atrophy, no contractures, Neuro: CN II-XI grossly intact, no gross focal neuro deficits Psych: Alert, oriented, appropriate affect Assessment: Right hand cellulitis Chronic conditions: Hypertension, hyperlipidemia Imaging: Right upper extremity venous Doppler was negative with hand x-ray showing diffuse soft tissue swelling, greatest dorsally with no other abnormalities noted. Data Review: Laboratory evaluation was remarkable for chloride 111, BUN 21, creatinine 0.99, glucose 108, WBC count 9.9, hemoglobin 15.0. Plan: Continue with IV antibiotics with vancomycin and ceftriaxone Follow-up blood cultures Continue with pain control with morphine Consider hand surgery consult if symptoms do not improve quickly Resume home medications once reconciled DVT prophylaxis: Heparin subcu The patient is admitted with an anticipated greater than 2 midnight stay for evaluation of cellulitis CODE STATUS: Full Code Discussed with: Patient Anticipated discharge place: Home Past Medical History Past Medical History: Hyperlipidemia, Hypertension Additional Past Medical History / Comment(s): kidney stones History of Any Multi-Drug Resistant Organisms: None Reported Additional Past Surgical History / Comment(s): hip replacements Past Psychological History: No Psychological Hx Reported Smoking Status: Never smoker Past Alcohol Use History: None Reported Past Drug Use History: None Reported - Past Family History Father Family Medical History: Hypertension Medications and Allergies Home Medications Medication Instructions Recorded Confirmed Type Cephalexin [Keflex] 500 mg PO TID #15 cap 06/25/20 Rx Ketorolac [Toradol] 10 mg PO Q8HR #15 tab 04/10/23 Rx Tamsulosin [Flomax] 0.4 mg PO DAILY #14 cap 04/10/23 Rx HYDROcodone/APAP 5-325MG [Godwin 1 tab PO Q6HR PRN 3 Days #12 tab 04/11/23 Rx 5-325] Allergies Allergy/AdvReac Type Severity Reaction Status Date / Time No Known Allergies Allergy Verified 06/20/24 22:57 Physical Exam Vitals: Vital Signs Temp Pulse Resp BP Pulse Ox 06/21/24 04:00 97.8 F 52 L 16 132/83 97 06/20/24 22:55 98.8 F 52 L 18 194/87 97 Intake and Output 06/20/24 06/20/24 06/21/24 14:59 22:59 06:59 Other: Weight 106.594 kg Results CBC & Chem 7: 06/21/24 00:04 06/21/24 00:45 Labs: Abnormal Lab Results - Last 24 Hours (Table) 06/21/24 06/21/24 Range/Units 00:04 00:45 Monocytes # 1.1 H (0-1.0) k/uL Chloride 111 H (98-107) mmol/L BUN 21 H (9-20) mg/dL Glucose 108 H (74-99) mg/dL C-Reactive Protein 3.2 H (<1.0) mg/dL
[2024-06-21] MEDS ORDERED: HYDROmorphone 1 MG/ML 1 ML SYRINGE IVP PRN (05:20)
[2024-06-21] MEDS ORDERED: ACETAMINOPHEN TAB 325 MG TAB PO PRN (05:20)
[2024-06-21] MEDS ORDERED: MAG HYDROX/AL HYDROX/SIMETH 30 ML CUP PO PRN (05:20)
[2024-06-21] MEDS ORDERED: CALCIUM CARBONATE 500 MG CHEWABLE PO PRN (05:20)
[2024-06-21] MEDS ORDERED: NALOXONE 0.4 MG/ML 1 ML VIAL IV PRN (05:20)
[2024-06-21] MEDS: HYDROcodone/APAP 5-325MG 1 EACH TAB PO PRN (06:47)
[2024-06-21] MEDS: HEPARIN SODIUM,PORCINE 5,000 UNIT/ML 1 ML VIAL SQ SCH (08:12)
[2024-06-21] MEDS: FAMOTIDINE 20 MG TAB PO SCH (08:12)
[2024-06-21] MEDS: HYDROmorphone 2 MG/ML 1 ML SYRINGE IVP PRN (09:04)
[2024-06-21] MEDS: TAMSULOSIN 0.4 MG CAP.ER.24H PO SCH (09:23)
[2024-06-21] MEDS: LOSARTAN 50 MG TAB PO SCH (10:26)
[2024-06-21] MEDS: METOPROLOL SUCCINATE (ER) 50 MG TAB.ER.24H PO SCH (10:29)
[2024-06-21] MEDS: NON FORMULARY DRUG (Tadalafil [Tadalafil] 10 MG Tablet) PO SCH (10:29)
[2024-06-21 10:32] LABS: Erythrocyte Sedimentation Rate 26 mm/Hr (0-20)
[2024-06-21] MEDS: predniSONE 20 MG TAB PO SCH (10:39)
[2024-06-21] MEDS: amLODIPine 5 MG TAB PO SCH (10:40)
[2024-06-21] MEDS: KETOROLAC 15 MG/ML 1 ML VIAL IVP SCH (10:40)
[2024-06-21] MEDS: PANTOPRAZOLE 40 MG TABLET PO SCH (10:41)
[2024-06-21] MEDS: COLCHICINE 0.6 MG EACH PO STA (11:16)
[2024-06-21] MEDS: COLCHICINE 0.6 MG EACH PO ONE (11:18)
[2024-06-21] MEDS: VANCOMYCIN 1,500 MG in SODIUM CHLORIDE 0.9% 500 ML 500 ML IVPB SCH (12:04)
--- NOTE | 2024-06-21 15:10 | P.PN ---
Subjective Progress Note Date: 06/21/24 Hospital course: Patient is a very pleasant 69-year-old male with a past medical history of hypertension, hyperlipidemia, and previous kidney stones. He presented to the hospital on 06/20/2024 with a chief complaint of right hand pain and swelling. Patient reports he was in [place] for his father's when he noticed a sudden pain in his right hand which has has progressively worsened over the past 36 hours accompanied by increased warmth, redness and swelling. Patient denies having any injury, bug bite, or noted wound on his hand and he denies having any fevers, chills, nausea, vomiting, or any other complaints. Upon arrival to our facility, patient underwent evaluation in the emergency department. Vital signs upon arrival show blood pressure 194/87, heart rate 52, respiratory rate 18, temp 98.8 F, and SpO2 of 97% on room air. X-ray right hand completed showing diffuse soft tissue swelling greatest dorsally but negative for acute osseous abnormality. Venous Doppler right upper extremity was negative for DVT. Labs completed and reviewed. CBC was unremarkable. ESR was elevated at 26. CRP elevated at 3.2. BUN showing mild hyperchloremia with chloride of 111 and prerenal azotemia with BUN of 21. Blood glucose 108. Liver profile unremarkable. Patient admitted under our services with consultation to orthopedic surgery team. Physical exam: Vital signs reviewed and stable. General: Nontoxic, no distress and appears stated age. Derm: Skin warm and dry, normal coloration for ethnicity. Head: Atraumatic, normocephalic and symmetric. Eyes: EOM's intact, no lid lag, and anicteric sclera Mouth: no lip lesions, mucus membranes moist Cardiovascular: regular rate and rhythm with normal S1S2, no murmur, positive posterior tibial pulses bilaterally, and cap refill < 2 seconds. Lungs: Respirations even, regular, and unlabored on room air. Lungs CTA bilaterally, no rhonchi, no rales, no wheezing, and no accessory muscle usage. Abdominal: soft, nontender to palpation, no guarding, no appreciable organomegaly Ext: No gross muscle atrophy, no edema, no contractures. Movement and sensation intact. Patient with limited/restricted movement of right hand unable to make a fist secondary to moderate swelling of dorsal surface of right hand extending distally into fingers and proximally up into wrist. No open wounds or drainage noted. Neuro: Speech clear, face symmetrical and CN II-XII grossly intact with no noted focal neuro deficits Psych: Alert and oriented to person, place, time, and situation. Appropriate and pleasant affect. Assessment and Plan of Care: Right hand pain and swelling, cellulitis vs gouty arthritis -Continue IV antibiotics with vancomycin 1500 mg every 12 hours IVPB and Rocephin 2 g every 24 hours IVPB. Closely monitor renal function and vancomycin trough for any signs of vancomycin associated renal toxicity. -Continue symptomatic care and pain management with Tylenol 650 mg every 6 hours as needed for mild pain/fever, Kinsey 5-325 mg tablets every 6 hours as needed for moderate pain, and Dilaudid 1 mg IVP every 3 hours for severe pain. -Order placed for uric acid. Hold hydrochlorothiazide and patient being given colchicine 1.2 mg p.o. x 1 dose followed by 0.6 mg 1 hour later for treatment of acute gout. Patient started on Toradol 15 mg IVP every 6 hours scheduled and prednisone 40 mg daily. -Consult placed to orthopedic surgery for evaluation as patient is having difficulty bending hand and fingers due to swelling. Hypertension, hypertensive urgency upon arrival -Blood pressures much better controlled. Currently 131/68 with heart rate of 55. -Hydrochlorothiazide held secondary to concerns of possible acute gouty arthritis patient to otherwise continue current medication regimen with amlodipine 5 mg daily, metoprolol 150 mg daily, and Ibesartan 300 mg daily. Hyperlipidemia -Continue daily medication regimen with rosuvastatin 5 mg nightly. GERD -Continue daily medication regimen with omeprazole 20 mg daily. Data and imaging reviewed: -X-ray right hand completed showing diffuse soft tissue swelling greatest dorsally but negative for acute osseous abnormality. -Venous Doppler right upper extremity was negative for DVT. -Labs completed and reviewed. CBC was unremarkable. ESR was elevated at 26. CRP elevated at 3.2. BUN showing mild hyperchloremia with chloride of 111 and prerenal azotemia with BUN of 21. Blood glucose 108. Liver profile unremarkable. -Vital signs reviewed. Blood pressure 131/68, heart rate 55, respiratory rate 18, temp 98.1 F, and SpO2 of 97% on room air. CODE STATUS: Full code DVT prophylaxis: Heparin Anticipated discharge date: Pending clinical course Anticipated discharge place: Home Patient was seen independently by Nurse Pracitioner. This document was prepared using [employer] dictation software. 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 I reviewed the documentation as provided by the LISA above, who is the original author of this note. I agree with the documented assessment and plan, with the following changes: none Objective - Vital Signs Vital signs: Vital Signs Temp 98.0 F 06/21/24 09:10 Pulse 49 L 06/21/24 09:10 Resp 18 06/21/24 09:10 BP 125/74 06/21/24 09:10 Pulse Ox 97 06/21/24 09:10 FiO2 Intake & Output 06/20/24 06/21/24 06/21/24 18:59 06:59 18:59 Weight 106.594 kg - Labs CBC & Chem 7: 06/22/24 04:26 06/22/24 04:26 Labs: Abnormal Lab Results - Last 24 Hours (Table) 06/21/24 06/21/24 Range/Units 00:04 00:45 Monocytes # 1.1 H (0-1.0) k/uL Chloride 111 H (98-107) mmol/L BUN 21 H (9-20) mg/dL Glucose 108 H (74-99) mg/dL C-Reactive Protein 3.2 H (<1.0) mg/dL
--- NOTE | 2024-06-21 18:51 | P.CNOR ---
History of Present Illness - HPI Consult date: 06/21/24 Requesting physician: Iglesia Barillas Consult reason: other (Right hand pain and swelling) History of present illness: History of Presenting Illness Patient is a A pleasant 60-year-old male who presented to the ER due to right hand pain and swelling. Patient states that he noticed pain and swelling into the right hand on 06/19/24, evening. Patient denies any injury or trauma to indicate onset of symptoms. Patient states his symptoms exacerbated over the night and had increase of swelling in the morning of 06/20/2024. Patient states approximately 2 weeks ago he did hit his right thumb with a hammer causing bruising to the nailbed. Patient does report aching pain to the thenar eminence and radial border region of the right hand Patient does have a past medical history of hypertension and hyperlipidemia. He does have a past orthopedic history of bilateral hip replacement in which he does report that he had to have a antibiotic spacer due to and occurred infection postop. Review of Systems Pertinent positives and negatives as discussed in HPI, a complete review of systems was performed and all other systems are negative. Physical Examination Right Hand: Inspection: Negative for any open fractures, wounds, ulcers, or any ecchymosis, Positive for significant erythema and edema of the right hand. Sensation: Sensation is equal, symmetric, bilaterally intact throughout the upper extremities Palpation: There is tenderness to palpation over the thenar eminence and r adial border region of the right hand Range of motion: Patient does have full range of motion bilateral upper extremities on exam. He does have limited right sampler first due to increased edema. Motor: 5/5 in all major motor groups in the bilateral upper extremities. Neurovascular: Radial pulse intact, 2+ bilaterally. Cap refill under 3 seconds in digits upper extremities. Assessment X-ray of the right hand does demonstrate soft tissue swelling, negative for any acute osseous abnormalities. 1. Right hand pain and swelling, cellulitis versus gouty arthritis Plan At this time we recommend to continue with oral stroids and IV antibiotic therapy. We will evaluate tomorrow morning. 2. Appreciate medical management 3. Pain management - continue with oral steroids and current regimen 4. Continue with IV antibiotics 5. Appreciate consult I reviewed and discussed this case with my attending Dr. Elder, whom has reviewed this chart and films and is in agreement with assessment and plan of care as outlined above. I have personally seen and examined the patient, performed the documentation and the assessment and plan as written. Number of minutes spent on the visit: 30m. Past Medical History Past Medical History: Hyperlipidemia, Hypertension Additional Past Medical History / Comment(s): kidney stones History of Any Multi-Drug Resistant Organisms: None Reported Additional Past Surgical History / Comment(s): hip replacements Past Psychological History: No Psychological Hx Reported Smoking Status: Never smoker Past Alcohol Use History: None Reported Past Drug Use History: None Reported - Past Family History Father Family Medical History: Hypertension Medications and Allergies Home Medications Medication Instructions Recorded Confirmed Type Diclofenac Sodium [Voltaren] 75 mg PO BID 06/21/24 06/21/24 History Irbesartan 300 mg PO DAILY 06/21/24 06/21/24 History Metoprolol Succinate (ER) [Toprol 150 mg PO DAILY 06/21/24 06/21/24 History Xl] Omeprazole [PriLOSEC] 20 mg PO DAILY 06/21/24 06/21/24 History Rosuvastatin Calcium [Crestor] 5 mg PO HS 06/21/24 06/21/24 History amLODIPine [Norvasc] 5 mg PO DAILY 06/21/24 06/21/24 History hydroCHLOROthiazide [Hydrodiuril] 12.5 mg PO DAILY 06/21/24 06/21/24 History tadalafiL 10 mg PO DAILY 06/21/24 06/21/24 History Allergies Allergy/AdvReac Type Severity Reaction Status Date / Time No Known Allergies Allergy Verified 06/21/24 09:40 Results - Labs Labs: Abnormal Lab Results - Last 24 Hours (Table) 06/21/24 06/21/24 Range/Units 00:04 00:45 Monocytes # 1.1 H (0-1.0) k/uL ESR 26 H (0-20) mm/Hr Chloride 111 H (98-107) mmol/L BUN 21 H (9-20) mg/dL Glucose 108 H (74-99) mg/dL C-Reactive Protein 3.2 H (<1.0) mg/dL H & H 06/21/24 Range/Units 00:04 Hgb 15.0 (13.0-17.5) gm/dL Hct 42.2 (39.0-53.0) % Result Diagrams: 06/21/24 00:04 06/21/24 00:45
[2024-06-21] MEDS: ATORVASTATIN 10 MG TAB PO SCH (21:59)
[2024-06-22 04:52] LABS: African American GFR (CKD) 71 (>60 ml/min/1.73 sqM); Anion Gap 5 mmol/L; Blood Urea Nitrogen 31 mg/dL (9-20); Calcium 8.2 mg/dL (8.4-10.2); Carbon Dioxide 21 mmol/L (22-30); Chloride 111 mmol/L (98-107); Glucose 202 mg/dL (74-99); Magnesium 1.8 mg/dL (1.6-2.3); Non-African American GFR(CKD) 62 (>60 ml/min/1.73 sqM); Potassium 4.1 mmol/L (3.5-5.1); Sodium 137 mmol/L (137-145)
[2024-06-22 09:28] LABS: HCT 35.6 % (39.6-50.0); MCH 30.4 pg (27.0-32.0); MCHC 33.7 g/dL (32.0-37.0); MCV 90.1 FL (80.0-97.0); Mean Platelet Volume 10.4 FL (9.5-12.2); NRBC Per 100 WBC 0 X 10*3/uL (0.00-0.01); Platelet Count 176 X 10*3/uL (140-440); RBC 3.95 X 10*6/uL (4.40-5.60); RDW 13.3 % (11.5-14.5)
[2024-06-22] MEDS: VANCOMYCIN TROUGH DUE 1 EACH MISC MISCELLANE ONE (11:08)
--- NOTE | 2024-06-22 12:24 | P.PN ---
Subjective Progress Note Date: 06/22/24 Principal diagnosis: Right hand pain and swelling Patient seen and examined this morning. Patient is resting comfortably in bed. Patient does report that he feels his symptoms are the same as previously documented. He continues with limited range of motion and grades 7 8 tutor of the right hand due to increased edema. RN has outlined the erythema border with a skin marker. Patient denies any fever chills, nausea/vomiting, or shortness of breath. No acute concerns. Objective - Vital Signs Vital signs: Vital Signs Temp 97.8 F 06/22/24 07:21 Pulse 55 L 06/22/24 07:21 Resp 18 06/22/24 07:21 BP 101/55 06/22/24 07:21 Pulse Ox 96 06/22/24 07:21 FiO2 Intake & Output 06/21/24 06/22/24 06/22/24 18:59 06:59 18:59 Intake Total 780 Balance 780 Weight 106.594 kg Intake: Oral 780 Other: # Voids 3 - Exam Right Hand: Inspection: Negative for any open fractures, wounds, ulcers, or any ecchymosis, Positive for significant erythema and edema of the right hand. There is a marked outline of the erythema border with a skin marker. Sensation: Sensation is equal, symmetric, bilaterally intact throughout the upper extremities Palpation: There is tenderness to palpation over the thenar eminence and radial border region of the right hand Range of motion: Patient does have full range of motion bilateral upper extr emities on exam. He does have limited right grades 7 8 tutor due to increased edema. Motor: 5/5 in all major motor groups in the bilateral upper extremities. Neurovascular: Radial pulse intact, 2+ bilaterally. Cap refill under 3 seconds in digits upper extremities. 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 Plan: At this time we recommend to continue with oral steroids and IV antibiotic therapy. Patient to perform ROM exercises as tolerated. We will continue to follow patient during his stay. 2. Appreciate medical management 3. Pain management - continue with oral steroids and current regimen 4. Continue with IV antibiotics 5. Appreciate consult I reviewed and discussed this case with my attending Dr. Elder, whom has reviewed this chart and films and is in agreement with assessment and plan of care as outlined above. I have personally seen and examined the patient, performed the documentation and the assessment and plan as written. Number of minutes spent on the visit: 30m.
--- NOTE | 2024-06-22 12:57 | P.PN ---
Subjective Progress Note Date: 06/22/24 Hospital course: Patient is a very pleasant 69-year-old male with a past medical history of hypertension, hyperlipidemia, and previous kidney stones. He presented to the hospital on 06/20/2024 with a chief complaint of right hand pain and swelling. Patient reports he was in [place] for his father's when he noticed a sudden pain in his right hand which has has progressively worsened over the past 36 hours accompanied by increased warmth, redness and swelling. Patient denies having any injury, bug bite, or noted wound on his hand and he denies having any fevers, chills, nausea, vomiting, or any other complaints. Upon arrival to our facility, patient underwent evaluation in the emergency department. Vital signs upon arrival show blood pressure 194/87, heart rate 52, respiratory rate 18, temp 98.8 F, and SpO2 of 97% on room air. X-ray right hand completed showing diffuse soft tissue swelling greatest dorsally but negative for acute osseous abnormality. Venous Doppler right upper extremity was negative for DVT. Labs completed and reviewed. CBC was unremarkable. ESR was elevated at 26. CRP elevated at 3.2. BUN showing mild hyperchloremia with chloride of 111 and prerenal azotemia with BUN of 21. Blood glucose 108. Liver profile unremarkable. Patient admitted under our services with consultation to orthopedic surgery team. Physical exam: Patient seen and fully evaluated at bedside. He reports pain and swelling remains unchanged. Area of erythema outlined with skin marker and does not appear to be worsening, but also showing no improvement. Patient remains unable to make a fist with his right hand secondary to pain and swelling. He denies any other complaints at this time. Vital signs reviewed and stable. General: Nontoxic, no distress and appears stated age. Derm: Skin warm and dry, normal coloration for ethnicity. Head: Atraumatic, normocephalic and symmetric. Eyes: EOM's intact, no lid lag, and anicteric sclera Mouth: no lip lesions, mucus membranes moist Cardiovascular: regular rate and rhythm with normal S1S2, no murmur, positive posterior tibial pulses bilaterally, and cap refill < 2 seconds. Lungs: Respirations even, regular, and unlabored on room air. Lungs CTA bilaterally, no rhonchi, no rales, no wheezing, and no accessory muscle usage. Abdominal: soft, nontender to palpation, no guarding, no appreciable organomegaly Ext: No gross muscle atrophy, no edema, no contractures. Movement and sensation intact. Patient with limited/restricted movement of right hand unable to make a fist secondary to moderate swelling of dorsal surface of right hand extending distally into fingers and proximally up into wrist. No open wounds or drainage noted. Small subungual hematoma on thumb of right hand. Neuro: Speech clear, face symmetrical and CN II-XII grossly intact with no noted focal neuro deficits Psych: Alert and oriented to person, place, time, and situation. Appropriate and pleasant affect. Assessment and Plan of Care: Right hand pain and swelling, cellulitis vs inflammatory arthritis -Continue IV antibiotics with vancomycin 1500 mg every 12 hours IVPB and Rocephin 2 g every 24 hours IVPB. Closely monitor renal function and vancomycin trough for any signs of vancomycin associated renal toxicity. -Continue symptomatic care and pain management with Tylenol 650 mg every 6 hours as needed for mild pain/fever, [place] 5-325 mg tablets every 6 hours as needed for moderate pain, and Dilaudid 1 mg IVP every 3 hours for severe pain. -Uric acid was normal at 5.8. ESR was elevated at 26 and CRP was elevated at 3.2. -Hydrochlorothiazide was held and patient being given colchicine 1.2 mg p.o. x 1 dose followed by 0.6 mg 1 hour later for treatment of acute gout and started on Toradol 15 mg IVP every 6 hours scheduled and prednisone 40 mg daily. 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 Non-anion gap metabolic acidosis -Patient placed on gentle IV fluid hydration at 100 cc/h x 10 hours. Will reevaluate with a.m. labs to monitor for resolution. Hypertension, hypertensive urgency upon arrival -Blood pressures much better controlled. Currently blood pressure 101/55 and heart rate 55 -Hydrochlorothiazide held secondary to concerns of possible acute gouty arthritis. Patient to continue current medication regimen with amlodipine 5 mg daily, metoprolol 150 mg daily, and Ibesartan 300 mg daily. Hyperlipidemia -Continue daily medication regimen with rosuvastatin 5 mg nightly. GERD -Continue daily medication regimen with omeprazole 20 mg daily. Data and imaging reviewed: -Labs completed and reviewed. CBC showing mild leukocytosis with WBC count of 11.50 and normocytic anemia with hemoglobin of 12.0. BMP showing mild metabolic acidosis with chloride of 111, bicarb of 21, and anion gap of 5 and prerenal azotemia with BUN of 31, creatinine of 1.20, and GFR of 62. Uric acid was normal at 5.8. ESR was elevated at 26 and CRP was elevated at 3.2. -Vital signs reviewed. Blood pressure 101/55, heart rate 55, respiratory rate 18, temp 97.8 F, and SpO2 of 96% on room air. CODE STATUS: Full code DVT prophylaxis: Heparin Anticipated discharge date: Pending clinical course Anticipated discharge place: Home Patient was seen independently by Nurse Pracitioner. This document was prepared using [employer] dictation software. Please allow for errors in camp tender, while rare they do occur. I reviewed the documentation as provided by the LISA above, who is the original author of this note. I agree with the documented assessment and plan, with the following changes: none Objective - Vital Signs Vital signs: Vital Signs Temp 97.8 F 06/22/24 07:21 Pulse 55 L 06/22/24 07:21 Resp 18 06/22/24 07:21 BP 101/55 06/22/24 07:21 Pulse Ox 96 06/22/24 07:21 FiO2 Intake & Output 06/21/24 06/22/24 06/22/24 18:59 06:59 18:59 Intake Total 780 Balance 780 Weight 106.594 kg Intake: Oral 780 Other: # Voids 3 - Labs CBC & Chem 7: 06/22/24 04:26 06/22/24 04:26 Labs: Abnormal Lab Results - Last 24 Hours (Table) 06/21/24 06/22/24 Range/Units 00:04 04:26 ESR 26 H (0-20) mm/Hr Chloride 111 H (98-107) mmol/L Carbon Dioxide 21 L (22-30) mmol/L BUN 31 H (9-20) mg/dL Glucose 202 H (74-99) mg/dL Calcium 8.2 L (8.4-10.2) mg/dL
[2024-06-22] MEDS: SODIUM CHLORIDE 0.9% 1,000 ML IV SCH (16:02)
[2024-06-23 08:38] LABS: HCT 36.2 % (39.6-50.0); HGB 12.2 g/dL (13.0-17.0); MCH 30.7 pg (27.0-32.0); MCHC 33.7 g/dL (32.0-37.0); Mean Platelet Volume 10.5 FL (9.5-12.2); NRBC Per 100 WBC 0 X 10*3/uL (0.00-0.01); Platelet Count 190 X 10*3/uL (140-440); RBC 3.98 X 10*6/uL (4.40-5.60); RDW 13.3 % (11.5-14.5); WBC 11.93 X 10*3/uL (4.50-10.00)
--- NOTE | 2024-06-23 08:40 | P.PN ---
Subjective Progress Note Date: 06/23/24 Principal diagnosis: Right hand pain and swelling Patient seen and examined this morning. Patient is resting comfortably in bed. Patient does report that he feels the pain into the right thumb continues to be tender to touch. There is visible improvement of the edema and swelling. He continues with limited range of motion and rn triage of the right hand due edemea and pain of the right thumb. Patient denies any fever chills, nausea/vomiting, or shortness of breath. No acute concerns. Objective - Vital Signs Vital signs: Vital Signs Temp 97.6 F 06/23/24 07:28 Pulse 61 06/23/24 07:28 Resp 18 06/23/24 07:28 BP 168/88 06/23/24 07:28 Pulse Ox 98 06/23/24 07:28 FiO2 Intake & Output 06/22/24 06/23/24 06/23/24 18:59 06:59 18:59 Intake Total 1840 590 Balance 1840 590 Intake: Oral 1840 590 Other: Voiding Method Toilet # Voids 1 # Bowel Movements 1 - Exam Right Hand: Inspection: Negative for any open fractures, wounds, ulcers, or any ecchymosis, Improvement of erythema and edema of the right hand. There is a marked outline of the erythema border with a skin marker. Sensation: Sensation is equal, symmetric, bilaterally intact throughout the upper extremities Palpation: There is tenderness to palpation over the thenar eminence and radial border region of the right hand Range of motion: Patient does have full range of motion bilateral upper extremities on exam. He does have limited right rn triage due to increased pain of the right thumb Motor: 5/5 in all major motor groups in the bilateral upper extremities. Neurovascular: Radial pulse intact, 2+ bilaterally. Cap refill under 3 seconds in digits upper extremities. 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 Patient to perform ROM exercises as tolerated. 1. Recommend consult to hand surgeon for further evaluation. 2. Appreciate medical management 3. Pain management - continue with oral steroids and current regimen 4. Continue with IV antibiotics 5. Appreciate consult 6. Patient is cleared from our standpoint, recommend to follow with hand surgeon. Our services will be signing off at this time. I reviewed and discussed this case with my attending Dr. Elder, whom has reviewed this chart and films and is in agreement with assessment and plan of care as outlined above. I have personally seen and examined the patient, performed the documentation and the assessment and plan as written. Number of minutes spent on the visit: 30m.
[2024-06-23 08:49] LABS: Blood Urea Nitrogen 28.2 mg/dL (9.0-27.0); Calcium 8.2 mg/dL (8.7-10.3); Carbon Dioxide 20.5 mmol/L (21.6-31.8); Chloride 108 mmol/L (96-109); Glucose 110 mg/dL (70-110); Magnesium 2.2 mg/dL (1.5-2.4); Potassium 3.9 mmol/L (3.5-5.5); Sodium 140 mmol/L (135-145)
--- NOTE | 2024-06-23 14:36 | P.PN ---
Subjective Progress Note Date: 06/23/24 Hospital course: Patient is a very pleasant 69-year-old male with a past medical history of hypertension, hyperlipidemia, and previous kidney stones. He presented to the hospital on 06/20/2024 with a chief complaint of right hand pain and swelling. Patient reports he was in [place] for his father's when he noticed a sudden pain in his right hand which has has progressively worsened over the past 36 hours accompanied by increased warmth, redness and swelling. Patient denies having any injury, bug bite, or noted wound on his hand and he denies having any fevers, chills, nausea, vomiting, or any other complaints. Upon arrival to our facility, patient underwent evaluation in the emergency department. Vital signs upon arrival show blood pressure 194/87, heart rate 52, respiratory rate 18, temp 98.8 F, and SpO2 of 97% on room air. X-ray right hand completed showing diffuse soft tissue swelling greatest dorsally but negative for acute osseous abnormality. Venous Doppler right upper extremity was negative for DVT. Labs completed and reviewed. CBC was unremarkable. ESR was elevated at 26. CRP elevated at 3.2. BUN showing mild hyperchloremia with chloride of 111 and prerenal azotemia with BUN of 21. Blood glucose 108. Liver profile unremarkable. Patient admitted under our services with consultation to orthopedic surgery team. Physical exam: Patient seen and fully evaluated at bedside. He reports pain and swelling remains unchanged. Area of erythema outlined with skin marker and does not appear to be worsening, but also showing no improvement. Patient remains unable to make a fist with his right hand secondary to pain and swelling. He denies any other complaints at this time. Vital signs reviewed and stable. General: Nontoxic, no distress and appears stated age. Derm: Skin warm and dry, normal coloration for ethnicity. Head: Atraumatic, normocephalic and symmetric. Eyes: EOM's intact, no lid lag, and anicteric sclera Mouth: no lip lesions, mucus membranes moist Cardiovascular: regular rate and rhythm with normal S1S2, no murmur, positive posterior tibial pulses bilaterally, and cap refill < 2 seconds. Lungs: Respirations even, regular, and unlabored on room air. Lungs CTA bilaterally, no rhonchi, no rales, no wheezing, and no accessory muscle usage. Abdominal: soft, nontender to palpation, no guarding, no appreciable organomegaly Ext: No gross muscle atrophy, no edema, no contractures. Movement and sensation intact. Patient with limited/restricted movement of right thumb, movement of fingers improving and swelling of dorsal surface of right hand also improving with the exception of of redness and swelling of thumb. No open wounds or drainage noted. Small subungual hematoma on thumb of right hand. Neuro: Speech clear, face symmetrical and CN II-XII grossly intact with no noted focal neuro deficits Psych: Alert and oriented to person, place, time, and situation. Appropriate and pleasant affect. Assessment and Plan of Care: Right hand pain and swelling, cellulitis vs inflammatory arthritis -Continue IV antibiotics with vancomycin 1500 mg every 12 hours IVPB and Rocephin 2 g every 24 hours IVPB. Closely monitor renal function and vancomycin trough for any signs of vancomycin associated renal toxicity. Vancomycin trough therapeutic at 12.8. -Continue symptomatic care and pain management with Tylenol 650 mg every 6 hours as needed for mild pain/fever, [place] 5-325 mg tablets every 6 hours as needed for moderate pain, and Dilaudid 1 mg IVP every 3 hours for severe pain. -Uric acid was normal at 5.8. ESR was elevated at 26 and CRP was elevated at 3.2. -Hydrochlorothiazide was held and patient was given colchicine 1.2 mg p.o. x 1 dose followed by 0.6 mg 1 hour later for treatment of acute gout and started on Toradol 15 mg IVP every 6 hours scheduled and prednisone 40 mg daily. 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 -Hand surgeon consulted, recommending MRI with and without contrast of right hand to rule out thenar abscess Non-anion gap metabolic acidosis -Patient placed on gentle IV fluid hydration at 100 cc/h x 10 hours. Will reevaluate with a.m. labs to monitor for resolution. Hypertension, hypertensive urgency upon arrival -Blood pressures much better controlled. Currently blood pressure 101/55 and heart rate 55 -Hydrochlorothiazide held secondary to concerns of possible acute gouty arthritis. Patient to continue current medication regimen with amlodipine 5 mg daily, metoprolol 150 mg daily, and Ibesartan 300 mg daily. Hyperlipidemia -Continue daily medication regimen with rosuvastatin 5 mg nightly. GERD -Continue daily medication regimen with omeprazole 20 mg daily. Data and imaging reviewed: -Labs completed and reviewed. CBC showing mild leukocytosis with WBC count of 11.93 and normocytic anemia with hemoglobin of 12.2. BMP showing mild metabolic acidosis with chloride of 108, bicarb of 20.5, and anion gap of 11.50. Renal function remains stable today with BUN of 28.2, creatinine 1.2, GFR of 65. Magnesium 2.2. -Vital signs reviewed. Blood pressure 168/88, heart rate 61, respiratory rate 18, temp 97.6 F, and SpO2 of 98% on room air. CODE STATUS: Full code DVT prophylaxis: Heparin Anticipated discharge date: Pending clinical course Anticipated discharge place: Home Patient was seen independently by Nurse Pracitioner. This document was prepared using [employer] dictation software. Please allow for errors in crown wheel assembler, while rare they do occur. I reviewed the documentation as provided by the LISA above, who is the original author of this note. I agree with the documented assessment and plan, with the following changes: none Objective - Vital Signs Vital signs: Vital Signs Temp 97.6 F 06/23/24 07:28 Pulse 61 06/23/24 07:28 Resp 18 06/23/24 07:28 BP 168/88 06/23/24 07:28 Pulse Ox 98 06/23/24 07:28 FiO2 Intake & Output 06/22/24 06/23/24 06/23/24 18:59 06:59 18:59 Intake Total 1840 590 Balance 1840 590 Intake: Oral 1840 590 Other: Voiding Method Toilet # Voids 1 # Bowel Movements 1 - Labs CBC & Chem 7: 06/23/24 06:11 06/23/24 06:11 Labs: Abnormal Lab Results - Last 24 Hours (Table) 06/22/24 Range/Units 04:26 WBC 11.50 H (4.50-10.00) X 10*3/uL RBC 3.95 L (4.40-5.60) X 10*6/uL Hgb 12.0 L (13.0-17.0) g/dL Hct 35.6 L (39.6-50.0) %
--- NOTE | 2024-06-23 14:58 | P.CNOR ---
History of Present Illness - [facility] Consult date: 06/23/24 Consult reason: other (Concern for right hand infection) History of present illness: INPATIENT CONSULTATION REQUESTING PHYSICIAN: [] REASON FOR CONSULT: [right hand infection] HISTORY OF PRESENT ILLNESS: [patient reports pain and swelling to the right hand without associated trauma that began earlier this week. he noted considerable swelling and erythema to the dorsum of the right hand. Since admission he notes considerable improvment in his pain and appearance of his hand, especially over the past 24 hours. he denies any current fevers or chills. ] PAST MEDICAL HISTORY: 1. As noted in the chart as noted in the chart MEDICATIONS: As noted in the chart ALLERGIES: As noted in the chart SOCIAL HISTORY: As noted in the chart FAMILY HISTORY: As noted in the chart REVIEW OF SYSTEMS: Patient is alert and oriented No confusion Mild pain to the right hand Mild erythema to the right hand Patient denies any fevers or chills PHYSICAL EXAMINATION: Patient overall is well-appearing Right hand examination Patient has very mild swelling to the dorsum of the hand there is improved erythema when compared to the previous boundaries noted with marker to the patient's hand There are no areas of overt fluctuance appreciated Patient has minimal tenderness throughout the dorsum of the hand to palpation he has some mild tenderness to firm palpation to the thumb MP and CMC joints Patient has full active motion of all joints of the right thumb as well as the other joints of the right hand Patient has full motion of the right wrist with only mild pain at terminal extension to the dorsum of the wrist Patient has no micromotion tenderness of any of the joints of the right hand Patient has intact motor and sensory innervation throughout the hand There is brisk capillary refill to all digits of the hand ADDITIONAL DATA: N/A ASSESSMENT: Right hand and wrist cellulitis that is responding appropriately to antibiotics based on significantly improved patient examination and patient reported level of discomfort additionally his inflammatory lab values have improved since admission PLAN: 1. Activity as tolerated to the right hand Given his significantly improved exam I do not think an MRI is warranted at this time as I have low suspicion for an abscess or infected joint of the right hand At this time there is no plans for surgical intervention for the right hand Continue IV antibiotics for at least another night If patient continues to improve I would anticipate him being able to discharge with an additional week of oral antibiotics covering the spectrum of bacteria currently being treated with his IV regimen Patient may follow-up with his primary care provider at discharge as I do not feel there is any need for surgical intervention of the right hand at this time. Past Medical History Past Medical History: Hyperlipidemia, Hypertension, Prostate Disorder Additional Past Medical History / Comment(s): kidney stones History of Any Multi-Drug Resistant Organisms: None Reported Past Surgical History: Orthopedic Surgery, Prostate Surgery Additional Past Surgical History / Comment(s): hip replacements, prostate surge ry 2023 Past Psychological History: No Psychological Hx Reported Smoking Status: Never smoker Past Alcohol Use History: None Reported Past Drug Use History: None Reported - Past Family History Father Family Medical History: Hypertension Medications and Allergies Home Medications Medication Instructions Recorded Confirmed Type Diclofenac Sodium [Voltaren] 75 mg PO BID 06/21/24 06/21/24 History Irbesartan 300 mg PO DAILY 06/21/24 06/21/24 History Metoprolol Succinate (ER) [Toprol 150 mg PO DAILY 06/21/24 06/21/24 History Xl] Omeprazole [PriLOSEC] 20 mg PO DAILY 06/21/24 06/21/24 History Rosuvastatin Calcium [Crestor] 5 mg PO HS 06/21/24 06/21/24 History amLODIPine [Norvasc] 5 mg PO DAILY 06/21/24 06/21/24 History hydroCHLOROthiazide [Hydrodiuril] 12.5 mg PO DAILY 06/21/24 06/21/24 History tadalafiL 10 mg PO DAILY 06/21/24 06/21/24 History Allergies Allergy/AdvReac Type Severity Reaction Status Date / Time No Known Allergies Allergy Verified 06/21/24 09:40 Results - Labs Labs: Abnormal Lab Results - Last 24 Hours (Table) 06/23/24 06/23/24 Range/Units 06:11 06:11 WBC 11.93 H (4.50-10.00) X 10*3/uL RBC 3.98 L (4.40-5.60) X 10*6/uL Hgb 12.2 L (13.0-17.0) g/dL Hct 36.2 L (39.6-50.0) % Carbon Dioxide 20.5 L (21.6-31.8) mmol/L BUN 28.2 H (9.0-27.0) mg/dL BUN/Creatinine Ratio 23.50 H (12.00-20.00) Ratio Calcium 8.2 L (8.7-10.3) mg/dL H & H 06/21/24 06/22/24 06/23/24 Range/Units 00:04 04:26 06:11 Hgb 15.0 12.0 L 12.2 L (13.0-17.5) gm/dL Hct 42.2 35.6 L 36.2 L (39.0-53.0) % Result Diagrams: 06/23/24 06:11 06/23/24 06:11
--- NOTE | 2024-06-23 22:22 | P.CONS ---
History of Present Illness - Reason for Consult Consult date: 06/23/24 Right hand cellulitis versus inflammatory arthritis Requesting physician: Iglesia Barillas - Chief Complaint Right hand swelling redness x few days - History of Present Illness Patient is a 69-year-old male with a past medical history significant for hypertension hyperlipidemia and prostate disorder presenting to the hospital 3 days ago for evaluation of right hand pain and this patient symptoms started the day before presentation the hospital and the patient mention when he woke up he noted to have significant swelling and redness of the right hand patient padmini es any history of any trauma or working outside of causing any scratch patient was describing pain to be dull aching to sharp moderate intense without radiation main symptom was diffuse swelling and redness patient denies any high- grade fever or chills and no fever have been recorded on presentation to hospital patient was not tachycardic hypotensive or hypoxic patient did have white count of 9.9 which improved to 11.93 today creatinine is 1.2 patient has been treated with vancomycin trough is 5.8 no culture has been done patient did have x-ray of the hand diffuse soft tissue swelling greatest dorsally and no bony abnormality infectious disease was consulted today for concern for cellulitis versus inflammatory arthritis of the resolving seeing the patient Review of Systems Positive point and negatives has been mentioned in the HPI, complete review of systems was performed and all other systems are negative Past Medical History Past Medical History: Hyperlipidemia, Hypertension, Prostate Disorder Additional Past Medical History / Comment(s): kidney stones History of Any Multi-Drug Resistant Organisms: None Reported Past Surgical History: Orthopedic Surgery, Prostate Surgery Additional Past Surgical History / Comment(s): hip replacements, prostate surgery 2023 Past Psychological History: No Psychological Hx Reported Smoking Status: Never smoker Past Alcohol Use History: None Reported Past Drug Use History: None Reported - Past Family History Father Family Medical History: Hypertension Medications and Allergies Home Medications Medication Instructions Recorded Confirmed Type Diclofenac Sodium [Voltaren] 75 mg PO BID 06/21/24 06/21/24 History Irbesartan 300 mg PO DAILY 06/21/24 06/21/24 History Metoprolol Succinate (ER) [Toprol 150 mg PO DAILY 06/21/24 06/21/24 History Xl] Omeprazole [PriLOSEC] 20 mg PO DAILY 06/21/24 06/21/24 History Rosuvastatin Calcium [Crestor] 5 mg PO HS 06/21/24 06/21/24 History amLODIPine [Norvasc] 5 mg PO DAILY 06/21/24 06/21/24 History hydroCHLOROthiazide [Hydrodiuril] 12.5 mg PO DAILY 06/21/24 06/21/24 History tadalafiL 10 mg PO DAILY 06/21/24 06/21/24 History Allergies Allergy/AdvReac Type Severity Reaction Status Date / Time No Known Allergies Allergy Verified 06/21/24 09:40 Physical Exam Vitals: Vital Signs Temp Pulse Resp BP Pulse Ox 06/23/24 12:07 97.7 F 53 L 16 132/69 94 L 06/23/24 07:28 97.6 F 61 18 168/88 98 06/23/24 02:00 97.8 F 52 L 16 137/76 96 06/22/24 20:00 98.1 F 59 L 16 129/61 95 06/22/24 19:40 18 Intake and Output 06/23/24 06/23/24 06/23/24 06:59 14:59 22:59 Intake Total 590 Balance 590 Intake: Oral 590 Other: # Bowel Movements 1 GENERAL DESCRIPTION: Elderly male lying in bed, no distress. No tachypnea or accessory muscle of respiration use. HEENT: Shows Pallor , no scleral icterus. Oral mucous membrane is dry. No pharyngeal erythema or thrush NECK: Trachea central, no thyromegaly. LUNGS: Unlabored breathing. Clear to auscultation anteriorly. No wheeze or crackle. HEART: S1, S2, regular rate and rhythm. No loud murmur ABDOMEN: Soft, no tenderness , guarding or rigidity, no organomegaly EXTREMITIES: Right hand swelling seem to have resolved and no redness was noticed apparently has receded from the line that was placed previously on admission SKIN: No rash, no masses palpable. NEUROLOGICAL: The patient is awake, alert, oriented x3, mood and affect normal. Results CBC & Chem 7: 06/23/24 06:11 06/23/24 06:11 Labs: Abnormal Lab Results - Last 24 Hours (Table) 06/23/24 06/23/24 Range/Units 06:11 06:11 WBC 11.93 H (4.50-10.00) X 10*3/uL RBC 3.98 L (4.40-5.60) X 10*6/uL Hgb 12.2 L (13.0-17.0) g/dL Hct 36.2 L (39.6-50.0) % Carbon Dioxide 20.5 L (21.6-31.8) mmol/L BUN 28.2 H (9.0-27.0) mg/dL BUN/Creatinine Ratio 23.50 H (12.00-20.00) Ratio Calcium 8.2 L (8.7-10.3) mg/dL Assessment and Plan (1) Cellulitis of right hand Current Visit: Yes Status: Acute Code(s): L03.113 - CELLULITIS OF RIGHT UPPER LIMB SNOMED Code(s): 56295285531577816 Plan: 1patient presented to hospital with right hand swelling without history of any trauma and noted to have significant swelling erythema to the dorsal aspect of the right hand did not have any open wound or drainage unfortunately has been called in to see the patient after 3 days and overall swelling redness has improved could be a component of cellulitis that may have responded to the vancomycin 2-I would suggest discontinuation of vancomycin and started the patient on cefazolin 3-if continue to improve will transition to oral Keflex on discharge Question concern answered We will follow on clinical condition and cultures to further adjust medication if needed Thank you for this consultation we will follow the patient along with you Dictation was produced using [employer] dictation software. please excuse any grammatical, word or spelling errors. Time with Patient: Greater than 30
[2024-06-24 08:45] LABS: ALT 39 U/L (10-49); AST 36 U/L (14-35); Albumin 3.5 g/dL (3.8-4.9); Albumin/Globulin Ratio 1.75 Ratio (1.60-3.17); Alkaline Phosphatase 57 U/L (41-126); BUN/Creat Ratio 19.91 Ratio (12.00-20.00); Blood Urea Nitrogen 21.9 mg/dL (9.0-27.0); Calcium 8.2 mg/dL (8.7-10.3); Carbon Dioxide 22.1 mmol/L (21.6-31.8); Chloride 112 mmol/L (96-109); Glucose 99 mg/dL (70-110); Sodium 143 mmol/L (135-145); Total Bilirubin 0.4 mg/dL (0.3-1.2); Total Protein 5.5 g/dL (6.2-8.2)
[2024-06-24 08:49] LABS: HCT 35.2 % (39.6-50.0); MCH 30.2 pg (27.0-32.0); MCHC 34.1 g/dL (32.0-37.0); MCV 88.7 FL (80.0-97.0); Mean Platelet Volume 10.4 FL (9.5-12.2); NRBC Per 100 WBC 0 X 10*3/uL (0.00-0.01); Platelet Count 186 X 10*3/uL (140-440); RBC 3.97 X 10*6/uL (4.40-5.60); RDW 13.4 % (11.5-14.5); WBC 8.91 X 10*3/uL (4.50-10.00)
--- NOTE | 2024-06-24 14:36 | P.PN ---
Subjective Progress Note Date: 06/24/24 Principal diagnosis: Reason for follow-up to the right hand swelling and question of cellulitis Patient is a 69-year-old male with a past medical history significant for hypertension hyperlipidemia and prostate disorder presenting to the hospital 3 days before initial consultation for evaluation of right hand pain and apparently was some swelling as well as redness was diagnosed with cellulitis treated with vancomycin and Rocephin and subsequent consultation to infectious disease. On today's evaluation that is 06/24/2024, Patient is afebrile this morning patient denies having any chest pain shortness of breath or cough, the patient is currently on room air, patient denies any abdominal pain no diarrhea no nausea no vomiting patient complaining of more pain to the right hand dorsum area but there is no redness or swelling no wound or drainage. Patient white count normalized to 8.91 creatinine is 1.1 Objective - Vital Signs Vital signs: Vital Signs Temp 98.2 F 06/24/24 07:52 Pulse 48 L 06/24/24 10:25 Resp 16 06/24/24 07:52 BP 144/81 06/24/24 10:25 Pulse Ox 95 06/24/24 01:50 FiO2 Intake & Output 06/23/24 06/24/24 06/24/24 18:59 06:59 18:59 Intake Total 620 Balance 620 Intake: Intake, IV Titration 500 Amount Vancomycin 1,500 mg In 500 Sodium Chloride 0.9% 500 ml 500 ml @ 167 mls/hr IVPB Q12H COUNT INCLUDES THE [facility] Rx#: [id number] Oral 120 Other: Voiding Method Toilet # Voids 4 - Exam GENERAL DESCRIPTION: An elderly male lying in bed in no distress RESPIRATORY SYSTEM: Unlabored breathing , decreased breath sounds at bases HEART: S1 S2 regular rate and rhythm , ABDOMEN: Soft , no tenderness EXTREMITIES: Right hand dorsum no significant redness open wound or drainage - Labs CBC & Chem 7: 06/24/24 05:32 06/24/24 05:32 Labs: Abnormal Lab Results - Last 24 Hours (Table) 06/24/24 06/24/24 Range/Units 05:32 05:32 RBC 3.97 L (4.40-5.60) X 10*6/uL Hgb 12.0 L (13.0-17.0) g/dL Hct 35.2 L (39.6-50.0) % Chloride 112 H (96-109) mmol/L Calcium 8.2 L (8.7-10.3) mg/dL AST 36 H (14-35) U/L Total Protein 5.5 L (6.2-8.2) g/dL Albumin 3.5 L (3.8-4.9) g/dL Assessment and Plan (1) Cellulitis of right hand Current Visit: Yes Status: Acute Code(s): L03.113 - CELLULITIS OF RIGHT UPPER LIMB SNOMED Code(s): 49191021326897193 Plan: 1patient presented to hospital with right hand swelling without history of any trauma and noted to have significant swelling erythema to the dorsal aspect of the right hand did not have any open wound or drainage unfortunately has been called in to see the patient after 3 days and overall swelling redness has improved could be a component of cellulitis that may have responded to the vancomycin 2-patient still complaining of more pain today however I did not appreciate any redness and his white count is normalized, the rationale behind switching him over to cefazolin has been explained to the patient and seem to agree to continue with the cefazolin and will reevaluate patient tomorrow also advised icing the area Dictation was produced using [employer] dictation software. please excuse any grammatical, word or spelling errors. Time with Patient: Less than 30
--- NOTE | 2024-06-24 16:28 | P.PN ---
Subjective Progress Note Date: 06/24/24 Hospital course: Patient is a very pleasant 69-year-old male with a past medical history of hypertension, hyperlipidemia, and previous kidney stones. He presented to the hospital on 06/20/2024 with a chief complaint of right hand pain and swelling. Patient reports he was in [place] for his father's when he noticed a sudden pain in his right hand which has has progressively worsened over the past 36 hours accompanied by increased warmth, redness and swelling. Patient denies having any injury, bug bite, or noted wound on his hand and he denies having any fevers, chills, nausea, vomiting, or any other complaints. Upon arrival to our facility, patient underwent evaluation in the emergency department. Vital signs upon arrival show blood pressure 194/87, heart rate 52, respiratory rate 18, temp 98.8 F, and SpO2 of 97% on room air. X-ray right hand completed showing diffuse soft tissue swelling greatest dorsally but negative for acute osseous abnormality. Venous Doppler right upper extremity was negative for DVT. Labs completed and reviewed. CBC was unremarkable. ESR was elevated at 26. CRP elevated at 3.2. BUN showing mild hyperchloremia with chloride of 111 and prerenal azotemia with BUN of 21. Blood glucose 108. Liver profile unremarkable. Patient admitted under our services with consultation to orthopedic surgery team. Physical exam: Patient seen and fully evaluated at bedside. He reports pain seeing increased pain to right thumb this morning with continued decreased range of movement. Patient did have mild swelling at base of thumb this morning. Remainder of erythema and edema of right hand has resolved. Vital signs reviewed and stable. General: Nontoxic, no distress and appears stated age. Derm: Skin warm and dry, normal coloration for ethnicity. Head: Atraumatic, normocephalic and symmetric. Eyes: EOM's intact, no lid lag, and anicteric sclera Mouth: no lip lesions, mucus membranes moist Cardiovascular: regular rate and rhythm with normal S1S2, no murmur, positive posterior tibial pulses bilaterally, and cap refill < 2 seconds. Lungs: Respirations even, regular, and unlabored on room air. Lungs CTA bilaterally, no rhonchi, no rales, no wheezing, and no accessory muscle usage. Abdominal: soft, nontender to palpation, no guarding, no appreciable organomegaly Ext: No gross muscle atrophy, no edema, no contractures. Movement and sensation intact. Patient with limited/restricted movement of right thumb, full range of movement of fingers, No open wounds or drainage noted. Small subungual hematoma on thumb of right hand. Neuro: Speech clear, face symmetrical and CN II-XII grossly intact with no noted focal neuro deficits Psych: Alert and oriented to person, place, time, and situation. Appropriate and pleasant affect. Assessment and Plan of Care: Right hand pain and swelling, cellulitis vs inflammatory arthritis -Continue IV antibiotics with Kefzol 2 g every 8 hours. -Continue symptomatic care and pain management with Tylenol 650 mg every 6 hours as needed for mild pain/fever, [place] 5-325 mg tablets every 6 hours as needed for moderate pain, and Dilaudid 1 mg IVP every 3 hours for severe pain. -Uric acid was normal at 5.8. ESR was elevated at 26 and CRP was elevated at 3.2. -Hydrochlorothiazide was held and patient was given colchicine 1.2 mg p.o. 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 -Hand surgeon consulted, reviewed documentation in chart. Non-anion gap metabolic acidosis -Patient placed on gentle IV fluid hydration at 100 cc/h x 10 hours. Will reevaluate with a.m. labs to monitor for resolution. Hypertension, hypertensive urgency upon arrival -Blood pressures much better controlled. Currently blood pressure 101/55 and heart rate 55 -Hydrochlorothiazide held secondary to concerns of possible acute gouty arthritis. Patient to continue current medication regimen with amlodipine 5 mg daily, metoprolol 150 mg daily, and Ibesartan 300 mg daily. Hyperlipidemia -Continue daily medication regimen with rosuvastatin 5 mg nightly. GERD -Continue daily medication regimen with omeprazole 20 mg daily. Data and imaging reviewed: -Labs completed and reviewed. CBC showing resolution of leukocytosis 8.91 with stable hemoglobin of 12.0. BMP showing mild hyperchloremia with chloride of 112 otherwise normal findings. Blood glucose 99. Magnesium 2.0. Liver profile showing slight elevation of AST at 36 otherwise normal findings. -Vital signs reviewed. Blood pressure 147/88, heart rate 46, respiratory rate 16, temp 98.2 F, and SpO2 of 95% on room air. CODE STATUS: Full code DVT prophylaxis: Heparin Anticipated discharge date: Pending clinical course Anticipated discharge place: Home Patient was seen independently by Nurse Pracitioner. This document was prepared using [employer] dictation software. Please allow for errors in shirt maker, while rare they do occur. I reviewed the documentation as provided by the LISA above, who is the original author of this note. I agree with the documented assessment and plan, with the following changes: none Objective - Vital Signs Vital signs: Vital Signs Temp 98.2 F 06/24/24 07:52 Pulse 46 L 06/24/24 07:52 Resp 16 06/24/24 07:52 BP 147/88 06/24/24 07:52 Pulse Ox 95 06/24/24 01:50 FiO2 Intake & Output 06/23/24 06/24/24 06/24/24 18:59 06:59 18:59 Intake Total 620 Balance 620 Intake: Intake, IV Titration 500 Amount Vancomycin 1,500 mg In 500 Sodium Chloride 0.9% 500 ml 500 ml @ 167 mls/hr IVPB Q12H [facility] Rx#: [id number] Oral 120 Other: Voiding Method Toilet # Voids 4 - Labs CBC & Chem 7: 06/24/24 05:32 06/24/24 05:32 Labs: Abnormal Lab Results - Last 24 Hours (Table) 06/23/24 06/23/24 Range/Units 06:11 06:11 WBC 11.93 H (4.50-10.00) X 10*3/uL RBC 3.98 L (4.40-5.60) X 10*6/uL Hgb 12.2 L (13.0-17.0) g/dL Hct 36.2 L (39.6-50.0) % Carbon Dioxide 20.5 L (21.6-31.8) mmol/L BUN 28.2 H (9.0-27.0) mg/dL BUN/Creatinine Ratio 23.50 H (12.00-20.00) Ratio Calcium 8.2 L (8.7-10.3) mg/dL
[2024-06-24] MEDS: ETODOLAC 400 MG TAB PO SCH (21:04)
[2024-06-25 07:26] VITALS: TEMP 97.9
[2024-06-25 08:07] VITALS: RESP 16
[2024-06-25] MEDS: hydroCHLOROthiazide 12.5 MG CAP PO SCH (10:47)
--- NOTE | 2024-06-25 11:27 | P.PN ---
Progress Note - Text Progress Note Date: 06/25/24 Patient was examined this morning and describes having significant improvement in his pain and swelling compared to previous days. He continues to deny any feelings of fevers or chills. He has some very minor pain to the basilar joint of the right thumb but otherwise has full motion of the hand. On exam he has minimal swelling to the dorsum of the hand the previous erythema has continued to recede in relation to the previous markings to the dorsum of the patient's hand. He has no micromotion tenderness of any of the joints of the hand and he has no areas of palpable fluctuance. His white blood cell count has continued to downtrend and is now normalized. At this time I do not feel there is any need for additional imaging agree with the primary and infectious disease plans for discharge. Given that there was no operative intervention required patient may follow-up with his primary care provider for follow-up of cellulitis at discharge, he may call our office should any new issues with the hand arise.
[2024-06-25 12:28] VITALS: BP 147/79; PULSE 54
--- NOTE | 2024-06-25 12:51 | P.PN ---
Subjective Progress Note Date: 06/25/24 Principal diagnosis: Reason for follow-up to the right hand swelling and question of cellulitis Patient is a 69-year-old male with a past medical history significant for hypertension hyperlipidemia and prostate disorder presenting to the hospital 3 days before initial consultation for evaluation of right hand pain and apparently was some swelling as well as redness was diagnosed with cellulitis treated with vancomycin and Rocephin and subsequent consultation to infectious disease. On today's evaluation that is 06/25/2024,the patient denies any fever or any chills, patient is breathing comfortably on room air, the patient denies chest pain shortness of breath and no significant cough, patient denies abdominal pain, no nausea vomiting or diarrhea. Patient mention improvement to the right hand pain and swelling there is no redness. Patient white count has been normal no CBC was done today no cultures were done Objective - Vital Signs Vital signs: Vital Signs Temp 97.9 F 06/25/24 08:00 Pulse 51 L 06/25/24 10:41 Resp 16 06/25/24 08:00 BP 158/86 06/25/24 10:41 Pulse Ox 97 06/25/24 07:15 FiO2 Intake & Output 06/24/24 06/25/24 06/25/24 18:59 06:59 18:59 Intake Total 658 Balance 658 Intake: Oral 658 Other: # Voids 3 - Exam GENERAL DESCRIPTION: An elderly male lying in bed in no distress RESPIRATORY SYSTEM: Unlabored breathing , decreased breath sounds at bases HEART: S1 S2 regular rate and rhythm , ABDOMEN: Soft , no tenderness EXTREMITIES: Right hand dorsum no significant redness open wound or drainage - Labs CBC & Chem 7: 06/24/24 05:32 06/24/24 05:32 Assessment and Plan (1) Cellulitis of right hand Status: Acute Code(s): L03.113 - CELLULITIS OF RIGHT UPPER LIMB SNOMED Code(s): 92532023979299363 Plan: 1patient presented to hospital with right hand swelling without history of any trauma and noted to have significant swelling erythema to the dorsal aspect of the right hand did not have any open wound or drainage unfortunately has been called in to see the patient after 3 days and overall swelling redness has improved could be a component of cellulitis that may have responded to the v ancomycin or Rocephin 2-patient did have overall improvement as far as pain and swelling to the right hand is concerned he will finish therapy with oral Keflex x 7 days discussed with [employer] TE[employer]ER for admitting team working on discharge Dictation was produced using [employer] dictation software. please excuse any grammatical, word or spelling errors. Time with Patient: Less than 30
--- NOTE | 2024-06-25 13:34 | P.DS ---
Providers Date of admission: 06/22/24 12:55 Expected date of discharge: 06/25/24 Attending physician: Arturo Cole MD Consults: 06/21/24 10:11 Consult Physician Routine Consulting Provider: Ruslan Elder Consult Reason/Comments: R hand swelling/pain, likely arthritic flare, ruling out cellulitis Do you want consulting provider notified?: Yes 06/23/24 10:51 Consult Physician Routine Consulting Provider: Nicolasa Gomez Consult Reason/Comments: R hand cellulitis vs infl arthritis improv but remains unable to move thumb Do you want consulting provider notified?: Yes 06/23/24 14:31 Consult Physician Routine Consulting Provider: Lenore Gongora Consult Reason/Comments: right hand cellulitis vs inflammatory arthritis Do you want consulting provider notified?: Yes Primary care physician: Summer Vazquez DO Hospital Course: Discharge Diagnosis: Cellulitis of right hand. Patient presented with Right hand pain and swelling questionable cellulitis vs inflammatory arthritis. He received a 5-day course of oral prednisone along with colchicine 1.2 mg p.o. x 1 dose followed by 0.6 mg 1 hour later. He was on IV antibiotics x5 days and evaluated by both orthopedic surgery and infectious disease. Patient had improvement of redness, swelling, and pain. Orthopedic surgery clearing patient from their perspective and infectious disease recommending discharge home on Keflex 500 mg p.o. every 8 hours for an additional 7 days. Non-anion gap metabolic acidosis, improved after IV fluid hydration. Hypertension, hypertensive urgency upon arrival with blood pressures much better controlled throughout hospitalization. Patient to continue amlodipine 5 mg daily, metoprolol 150 mg daily,, Ibesartan 300 mg daily, and hydrochlorothiazide 12.5 mg daily. Hyperlipidemia. Continue daily medication regimen with rosuvastatin 5 mg nightly. GERD. Continue daily medication regimen with omeprazole 20 mg daily. Hospital course: Patient is a very pleasant 69-year-old male with a past medical history of hypertension, hyperlipidemia, and previous kidney stones. He presented to the hospital on 06/20/2024 with a chief complaint of right hand pain and swelling. Patient reports he was in [place] for his father's when he noticed a sudden pain in his right hand which has has progressively worsened over the past 36 hours accompanied by increased warmth, redness and swelling. Patient denies having any injury, bug bite, or noted wound on his hand and he denies having any fevers, chills, nausea, vomiting, or any other complaints. Upon arrival to our facility, patient underwent evaluation in the emergency department. Vital signs upon arrival show blood pressure 194/87, heart rate 52, respiratory rate 18, temp 98.8 F, and SpO2 of 97% on room air. X-ray right hand completed showing diffuse soft tissue swelling greatest dorsally but negative for acute osseous abnormality. Venous Doppler right upper extremity was negative for DVT. Labs completed and reviewed. CBC was unremarkable. ESR was elevated at 26. CRP elevated at 3.2. BUN showing mild hyperchloremia with chloride of 111 and prerenal azotemia with BUN of 21. Blood glucose 108. Liver profile unremarkable. Patient admitted under our services for Right hand pain and swelling questionable cellulitis vs inflammatory arthritis. He received a 5-day course of oral prednisone along with colchicine 1.2 mg p.o. x 1 dose followed by 0.6 mg 1 hour later. He was on IV antibiotics x5 days and evaluated by both orthopedic surgery and infectious disease. Patient had improvement of redness, swelling, and pain. Orthopedic surgery clearing patient from their perspective and infectious disease recommending discharge home on Keflex 500 mg p.o. every 8 hours for an additional 7 days. Physical exam: Vital signs reviewed and stable. General: Nontoxic, no distress and appears stated age. Derm: Skin warm and dry, normal coloration for ethnicity. Head: Atraumatic, normocephalic and symmetric. Eyes: EOM's intact, no lid lag, and anicteric sclera Mouth: no lip lesions, mucus membranes moist Cardiovascular: regular rate and rhythm with normal S1S2, no murmur, positive posterior tibial pulses bilaterally, and cap refill < 2 seconds. Lungs: Respirations even, regular, and unlabored on room air. Lungs CTA bilaterally, no rhonchi, no rales, no wheezing, and no accessory muscle usage. Abdominal: soft, nontender to palpation, no guarding, no appreciable organomegaly Ext: No gross muscle atrophy, no edema, no contractures. Movement and sensation intact. Patient with much movement of right thumb and full range of movement of fingers, Small subungual hematoma on thumb of right hand. Neuro: Speech clear, face symmetrical and CN II-XII grossly intact with no noted focal neuro deficits Psych: Alert and oriented to person, place, time, and situation. Appropriate and pleasant affect. A total of 35 minutes of time were spent preparing this complex discharge summary. Pt was discharged on 06/25/2024 at 11:57 AM Patient was seen independently by Nurse Practitioner. This document was prepared using [employer] dictation software. Please allow for errors in lmft while rare they do occur. Iglesia Barillas NP rendered care for this patient independently, reviewed the findings and plan as documented in the note above. I did not physically speak with or examine the patient on this date. Patient Condition at Discharge: Stable Plan - Discharge Summary Discharge Rx Participant: Yes New Discharge Prescriptions: New Cephalexin [Keflex] 500 mg PO Q8HR 7 Days #21 cap Continue Irbesartan 300 mg PO DAILY Diclofenac Sodium [Voltaren] 75 mg PO BID amLODIPine [Norvasc] 5 mg PO DAILY hydroCHLOROthiazide [Hydrodiuril] 12.5 mg PO DAILY Omeprazole [PriLOSEC] 20 mg PO DAILY Metoprolol Succinate (ER) [Toprol XL] 150 mg PO DAILY tadalafiL 10 mg PO DAILY Rosuvastatin Calcium [Crestor] 5 mg PO HS Discharge Medication List Diclofenac Sodium [Voltaren] 75 mg PO BID 06/21/24 [History] Irbesartan 300 mg PO DAILY 06/21/24 [History] Metoprolol Succinate (ER) [Toprol XL] 150 mg PO DAILY 06/21/24 [History] Omeprazole [PriLOSEC] 20 mg PO DAILY 06/21/24 [History] Rosuvastatin Calcium [Crestor] 5 mg PO HS 06/21/24 [History] amLODIPine [Norvasc] 5 mg PO DAILY 06/21/24 [History] hydroCHLOROthiazide [Hydrodiuril] 12.5 mg PO DAILY 06/21/24 [History] tadalafiL 10 mg PO DAILY 06/21/24 [History] Cephalexin [Keflex] 500 mg PO Q8HR 7 Days #21 cap 06/25/24 [Rx] Follow up Appointment(s)/Referral(s): Summer Vazquez DO [Primary Care Provider] - 1-2 days (Please call to make follow up appointment.) Patient Instructions/Handouts: Cephalexin (By mouth) Activity/Diet/Wound Care/Special Instructions: Activity: As tolerated. Take breaks as needed. Diet: Heart healthy and carb consistent diet. Special Instructions: Take all of your medications as directed and remember to keep all of your doctor's appointments and follow-up as needed. Thank you for allowing us to participate in your care, it was truly a pleasure having you for our patient!!! Discharge Disposition: HOME SELF-CARE
== END 2024-06-25 12:31 | disposition home or self-care (01) | DRG 603 ==
LOC: EC 22:39 → 6NMEDSUR 06-21 05:20 → 5NMEDONC 06-21 14:47 → OBSVTOIN 06-22 12:55
PROVIDERS: ADMIT Internal Medicine; ATTEND Internal Medicine
DX: L03.113 Cellulitis of right upper limb (principal); E87.20 Acidosis, unspecified; E78.5 Hyperlipidemia, unspecified; I10 Essential (primary) hypertension; K21.9 Gastro-esophageal reflux disease without esophagitis; I16.0 Hypertensive urgency; Z96.643 Presence of artificial hip joint, bilateral; E87.8 Other disorders of electrolyte and fluid balance, not elsewhere classified; M06.4 Inflammatory polyarthropathy; Z79.899 Other long term (current) drug therapy
CPT/HCPCS: 36415; 80048; 80053; 80202; 83735; 84550; 85025; 85027; 85652; 86140; 96365; 96366; 96368; 96375; 96376; 99285